=== PATIENT | female | born 1945 | race Caucasian/White ===

== ENCOUNTER 2018-09-14 11:51 | Inpatient (IN) ==
--- NOTE | 2018-09-14 12:01 | Emergency Department Note ---
Disposition Clinical Impression: Laceration Disposition: Admitted As Inpatient Condition: Fair Time of Disposition: 14:47 General Adult HPI - General Stated complaint: Wound on left leg Time Seen by Provider: 09/14/18 11:57 - Related Data Home Medications Medication Instructions Recorded Confirmed Avalide 300-12.5 mg Tablet 1 tab PO DAILY 09/14/18 09/14/18 CloNIDine 0.1 mg PO BID 09/14/18 09/14/18 Crestor 10 mg PO DAILY 09/14/18 09/14/18 Glimepiride 4 mg PO DAILY 09/14/18 09/14/18 Insulin Glargine [Lantus] 40 units SQ HS 09/14/18 09/14/18 Novolog 5 unit SQ TIDAC 09/14/18 09/14/18 Allergies Allergy/AdvReac Type Severity Reaction Status Date / Time morphine Allergy Hives Verified 09/14/18 09:48 propoxyphene [From Darvon] Allergy Hives Verified 09/14/18 09:48 Sulfa (Sulfonamide Allergy Hives Verified 09/14/18 09:48 Antibiotics) Past Medical History - Past Medical History Medical history: Reports: diabetes, hypertension Psychiatric history: Reports: no psych history - Social History Smoking Status: Never smoker Smokeless Tobacco Status: No Alcohol use: Reports: none Drug use: Reports: none Course Vital Signs Temperature 98.2 F 09/14/18 11:56 Pulse Rate 116 09/14/18 11:56 Respiratory Rate 22 09/14/18 11:56 Blood Pressure 181/91 09/14/18 11:56 O2 Sat by Pulse Oximetry 100 09/14/18 11:56 Temperature 98.3 F 09/15/18 11:47 Pulse Rate 111 09/15/18 11:47 Respiratory Rate 16 09/15/18 11:47 Blood Pressure 123/73 09/15/18 11:47 O2 Sat by Pulse Oximetry 92 09/15/18 11:47 Oxygen Delivery Oxygen Delivery Room Air Medical Decision Making - Lab Data Result diagrams: 09/15/18 04:37 09/15/18 04:37 Lab Results 09/14/18 09/14/18 09/14/18 Range/Units 12:22 12:38 12:38 WBC 16.4 H (4.3-11.1) K/mcL RBC 4.69 (3.82-4.97) M/mcL Hgb 13.6 (11.5-15.4) g/dL Hct 41.7 (35.3-44.9) % MCV 88.9 (83.0-100.0) fL MCH 29.0 (28.0-33.3) pg MCHC 32.6 (31.6-35.5) g/dL RDW 13.8 (11.5-14.5) % Plt Count 373 (140-400) K/mcL MPV 9.1 L (9.4-12.4) fL Immature Gran % 1.8 (0-4) % Seg Neutrophils % 65.5 % Lymphocytes % 22.6 % Monocytes % 8.0 % Eosinophils % 1.2 % Basophils % 0.9 % Neutrophils # 10.8 H (1.6-8.9) K/mcL Lymphocytes # 3.7 (0.6-4.6) K/mcL Monocytes # 1.3 (0.0-1.3) K/mcL Eosinophils # 0.2 (0.0-0.6) K/mcL Basophils # 0.1 (0.0-0.2) K/mcL PT 11.6 (9.4-12.1) Seconds INR 1.0 Sodium (136-145) mEq/L Potassium (3.5-5.1) mEq/L Chloride (98-107) mEq/L Carbon Dioxide (23-29) mEq/L BUN (8-23) mg/dL Creatinine (0.60-1.20) mg/dL Est GFR ( Amer) (> 60) Est GFR (Non-Af Amer) (> 60) BUN/Creatinine Ratio (6-26) Glucose (70-105) mg/dL POC Glucose 257 H (70-99) mg/dL Calculated Osmolality (280-300) Calcium (8.6-10.3) mg/dL Blood Type Antibody Screen 09/14/18 09/14/18 Range/Units 12:38 12:38 WBC (4.3-11.1) K/mcL RBC (3.82-4.97) M/mcL Hgb (11.5-15.4) g/dL Hct (35.3-44.9) % MCV (83.0-100.0) fL MCH (28.0-33.3) pg MCHC (31.6-35.5) g/dL RDW (11.5-14.5) % Plt Count (140-400) K/mcL MPV (9.4-12.4) fL Immature Gran % (0-4) % Seg Neutrophils % % Lymphocytes % % Monocytes % % Eosinophils % % Basophils % % Neutrophils # (1.6-8.9) K/mcL Lymphocytes # (0.6-4.6) K/mcL Monocytes # (0.0-1.3) K/mcL Eosinophils # (0.0-0.6) K/mcL Basophils # (0.0-0.2) K/mcL PT (9.4-12.1) Seconds INR Sodium 138 (136-145) mEq/L Potassium 3.7 (3.5-5.1) mEq/L Chloride 99 (98-107) mEq/L Carbon Dioxide 26 (23-29) mEq/L BUN 23 (8-23) mg/dL Creatinine 1.20 (0.60-1.20) mg/dL Est GFR ( Amer) 54 L (> 60) Est GFR (Non-Af Amer) 44 L (> 60) BUN/Creatinine Ratio 19 (6-26) Glucose 275 H (70-105) mg/dL POC Glucose (70-99) mg/dL Calculated Osmolality 299 (280-300) Calcium 10.0 (8.6-10.3) mg/dL Blood Type O POSITIVE Antibody Screen NEGATIVE Attestation Statement - Attestation Attestation: I reviewed the residents documentation and agree with the residents assessment and plan of care. I have personally had face to face time with the patient. (Brief History, Brief Exam, and MDM) I personally supervised and was present for the tatum/critical portions of the following procedures completed by the resident: (add procedures performed here). [id number] time provided Patient sent from outside facilities due to traumatic laceration/skin tear to her left lower extremity. Patient does have laceration to her distal left leg without active bleeding. Given the size I feel it is most appropriate to have the acute care surgeon hydro station operator evaluate the patient for possible operative washout and primary approximation I attest to supervising the resident physician's interpretation of the ECG
--- NOTE | 2018-09-14 12:06 | Emergency Department Note ---
Disposition Clinical Impression: Laceration Disposition: Admitted As Inpatient Condition: Fair Time of Disposition: 12:38 Extremity Problem HPI - General Stated complaint: Wound on left leg Time Seen by Provider: 09/14/18 11:57 Source: EMS Mode of arrival: EMS Limitations: no limitations Nursing Notes Reviewed: Yes Vital Signs Reviewed: Yes - History of Present Illness HPI Narrative: 72-year-old female with significant past medical history that reports falling this morning at 9:00 while she bent down and struck her leg on the floor she lost her balance. Patient sustained a greater than 60 cm laceration from her left knee down to her left ankle across the anterior aspect of the leg. Patient was initially evaluated at an outside facility and sent here for definitive management. Patient is currently complaining of left leg pain that she states is pulsating with every heartbeat. She states is approximately a 7 out of 10 in severity. She was given 2 doses of 25 g of fentanyl at the outside facility but they did not last very long and she is in pain again. Pain Scale: 10 - Related Data Home Medications Medication Instructions Recorded Confirmed Avalide 300-12.5 mg Tablet 1 tab PO DAILY 09/14/18 09/14/18 CloNIDine 0.1 mg PO BID 09/14/18 09/14/18 Crestor 10 mg PO DAILY 09/14/18 09/14/18 Glimepiride 4 mg PO DAILY 09/14/18 09/14/18 Insulin Glargine [Lantus] 40 units SQ HS 09/14/18 09/14/18 Novolog 5 unit SQ TIDAC 09/14/18 09/14/18 Allergies Allergy/AdvReac Type Severity Reaction Status Date / Time morphine Allergy Hives Verified 09/14/18 09:48 propoxyphene [From Darvon] Allergy Hives Verified 09/14/18 09:48 Sulfa (Sulfonamide Allergy Hives Verified 09/14/18 09:48 Antibiotics) Review of Systems: In addition to that documented in the HPI above, the additional ROS was obtained: Constitutional: Denies fevers or chills Eyes: Denies vision changes ENMT: Denies sore throat CV: Denies chest pain Resp: Denies SOB GI: Denies vomiting or diarrhea : Denies painful urination MSK: Reports fall this AM with resultant left leg laceration Skin: Denies new rashes Neuro: Denies new numbness or tingling or weakness Past Medical History - Past Medical History Attestation: Yes The following information was validated with the patient. Medical history: Reports: diabetes, hypertension Psychiatric history: Reports: no psych history - Social History Smoking Status: Never smoker Smokeless Tobacco Status: No Alcohol use: Reports: none Drug use: Reports: none Physical Exam General: A&O x 3. Mildly distressed. Well developed, well nourished. Obese female. Head: atraumatic, normocephalic. ENT: No conjunctival injection, no scleral icterus. PERRLA. EOMI. Oropharynx non- erythematous. mucous membranes moist. Neuro: No focal deficits, no speech deficit, no facial droop, mentating well. BU E/BLE Str 5/5. Pulm: Lungs CTAB A/P. No wheezes, rales, ronchi. Cardio: RRR no m/r/g. Chest not tender to palpation. Abd: Soft, non-distended. Normoactive bowel sounds. Non-tender to palpation. No guarding. Non rigid. Extremities: Radial pulses 2+ freddy, dorsalis pedis/posterior tibialis 2+ freddy. Left lower extremity with >60cm laceration from just distal to knee to just proximal from ankle. Skin: warm, dry, with laceration as noted above. Psych: Appropriate mood and affect. Answers questions appropriately. Cooperative with exam. - General Limitations: no limitations General appearance: alert Course - Consultations Consultation #1: Spoke with Dr Perales, on-call surgeon, who stated that he would come and evaluate the patient at bedside. Time: 12:03 Vital Signs Temperature 98.2 F 09/14/18 11:56 Pulse Rate 116 09/14/18 11:56 Respiratory Rate 22 09/14/18 11:56 Blood Pressure 181/91 09/14/18 11:56 O2 Sat by Pulse Oximetry 100 09/14/18 11:56 Temperature 98.2 F 09/14/18 11:56 Pulse Rate 116 09/14/18 11:56 Respiratory Rate 22 09/14/18 11:56 Blood Pressure 181/91 09/14/18 11:56 O2 Sat by Pulse Oximetry 100 09/14/18 11:56 Oxygen Delivery Oxygen Delivery Room Air Extremity Problem, Nontraumati - MDM Narrative Medical decision making narrative: Patient was evaluated at the bedside by the on-call surgeon Dr. Perales who stated that he would take the patient to the OR for operative repair with washout. Dr. Perales then stated that he would be admitting the patient to his service and would be treating her as a skin graft patient. Patient's pain was treated while in the department with IV fentanyl. Results of the workup including any imaging and/or labwork was shared with the patient at bedside. Patient was given an opportunity to ask questions at bedside and all of their concerns were addressed. Patient verbalized understanding and agreement with plan of care. Pt remained stable while in the department. - Medical Records Medical records reviewed: Yes I reviewed the patient's medical records. - Lab Data Lab Results 09/14/18 Range/Units 12:22 POC Glucose 257 H (70-99) mg/dL - Radiology Data Radiology results reviewed: Yes I reviewed the patient's radiology results. - EKG Data EKG attestation: Yes I reviewed and interpreted this EKG. EKG results narrative: Heart rate 116, rhythm sinus tachycardia, axis normal. Intervals within normal limits. Baseline wandering compromises interpretation of study. No ST segment elevation or depression noted.
[2018-09-14] MEDS ORDERED: *HR* FentaNYL (PF) 100 MCG/2 ML VIAL IVP ONE (12:16)
--- NOTE | 2018-09-14 12:24 | Acute Care Surgery H&P ---
Date of Encounter: 09/14/18 Time of Encounter: 12:15 Assessment and Plan (1) Open wound of lower leg with complication Current Visit: Yes Status: Acute The assessment and plan as outlined above was discussed with the patient and/or family members who expressed understanding and agreement. All questions were answered. The patient has a severe greater than 60 cm laceration to the left lower extremity. This will need to be addressed in the operating room immediately. Qualifiers: Encounter type: initial encounter Laterality: left Qualified Code(s): S81.802A - Unspecified open wound, left lower leg, initial encounter History of Present Illness Chief complaint: Complex laceration left lower extremity HPI: Ms. Marshall is a 72 year old female With profound morbid obesity who fell at a [employer]'s and sustained a greater than 60 cm laceration to her left lower extremity with extensive degloving i njury from just above the ankle to the knee she is actively bleeding in the emergency department and will require immediate surgical irrigation and debridement with closure of complex laceration. Patient understands risks and benefits will go to the operating room immediately Past Med Surg Social Fam HX - Past Medical History Medical history: diabetes, hypertension Psychiatric history: no psych history - Past Surgical History Additional surgical history: thyroid cyst removed - Social History Smoking Status: Never smoker Smokeless Tobacco Status: No Alcohol use: none Drug use: none Medications and Allergies Avalide 300-12.5 mg Tablet 1 tab PO DAILY 09/14/18 [History] CloNIDine 0.1 mg PO BID 09/14/18 [History] Crestor 10 mg PO DAILY 09/14/18 [History] Glimepiride 4 mg PO DAILY 09/14/18 [History] Insulin Glargine [Lantus] 40 units SQ HS 09/14/18 [History] Novolog 5 unit SQ TIDAC 09/14/18 [History] Allergy/AdvReac Type Severity Reaction Status Date / Time morphine Allergy Hives Verified 09/14/18 09:48 propoxyphene [From Darvon] Allergy Hives Verified 09/14/18 09:48 Sulfa (Sulfonamide Allergy Hives Verified 09/14/18 09:48 Antibiotics) Review of Systems All systems PM: The remainder of the systems were reviewed and are negative General Surgery Exam Initial Vital Signs Temp Pulse Resp BP Pulse Ox 98.2 F 116 22 181/91 100 09/14/18 11:56 07/11/19 11:56 09/14/18 11:56 09/14/18 11:56 09/14/18 11:56 - General physical appearance well developed, well nourished, no distress, obese (Profound morbid obesity) - Respiratory normal expansion, normal respiratory effort, clear to percussion, clear to auscultation - Cardiovascular Cardiovascular exam: Present: RRR, no murmurs/rubs/gallops - Abdomen Abdomen general surgery: Present: bowel sounds present, soft, non tender - Integumentary Integumentary general surgery: Present: other (Severe greater than 60 cm laceration and degloving injury to left lower extremity) - Neurologic Present: CN 2-12 grossly intact, normal coordination, normal sensation - Psychiatric Psychiatric general surgery: Present: appropriate, oriented to person, oriented to place, oriented to time, speech is normal, memory intact Results - Labs All other labs normal.
--- NOTE | 2018-09-14 12:42 | Anesthesia Evaluation PreOp ---
Date of Encounter: 09/14/18 Time of Encounter: 12:40 - Past History Planned Operation: Closure of Left Leg Laceration Cardiac History: HTN Pulmonary History: Denies Any Significant HX, BRENT Dx NUCLEAR TEST TECHNICIAN History: Denies Any Significant HX Other Medical History: Diabetes Type II, Other (SMO BMI-55.2) Anesthesia History: No Prior Anesthetic Complications, Past Anesthesia (Thyroid cyst) : No Alcohol Use: none Drug use: none Medications and Allergies Avalide 300-12.5 mg Tablet 1 tab PO DAILY 09/14/18 [History] CloNIDine 0.1 mg PO BID 09/14/18 [History] Crestor 10 mg PO DAILY 09/14/18 [History] Glimepiride 4 mg PO DAILY 09/14/18 [History] Insulin Glargine [Lantus] 40 units SQ HS 09/14/18 [History] Novolog 5 unit SQ TIDAC 09/14/18 [History] Allergy/AdvReac Type Severity Reaction Status Date / Time morphine Allergy Hives Verified 09/14/18 09:48 propoxyphene [From Darvon] Allergy Hives Verified 09/14/18 09:48 Sulfa (Sulfonamide Allergy Hives Verified 09/14/18 09:48 Antibiotics) - Meds/Allergy Pre-op Review Medications Reviewed: Yes Allergies Reviewed: Yes Beta Blockers on Current Med List: No Anesthesia Results - Labs 09/14/18 12:38 Laboratory Tests 05/03/14 05/03/14 08:50 08:50 Sodium 136 Potassium 4.1 Chloride 105 Carbon Dioxide 21 Creatinine 0.97 Hemoglobin A1c 9.8 H Anesthesia Exam Vital Signs/O2 Sat, Most Current Temp Pulse Resp BP Pulse Ox 98.2 F 117 20 176/84 95 09/14/18 11:56 09/14/18 12:58 09/14/18 12:58 09/14/18 12:58 09/14/18 12:58 Blood glucose: 257 NPO (# of Hours): > 8 Hrs Pain Scale: 2 Pain Scale Used: Numeric (1 - 10) - HEENT Pupil (Motor): Pupils equal, EOMI Mallampati: II Teeth: Normal Oral Opening: Greater than 3 - NUCLEAR TEST TECHNICIAN LOC: Oriented NUCLEAR TEST TECHNICIAN Motor: Normal RUE, Normal LUE, Normal RLE, Normal LLE, Normal Face NUCLEAR TEST TECHNICIAN Sensory: Normal: RUE, LUE, RLE, LLE, Face - Cardiac Rhythm: Regular Murmur: None JVD: No Carotid Bruit: No - Pulmonary Breath Sounds: bilateral Clear Respiratory Effort: Symmetrical Anesthesia Assess/Plan ASA Score: 4 Level of consciousness: Cooperative Anesthetic Plan: General Autologous Blood: Yes Monitoring Plan: Standard Monitors Recovery Plan: PACU
[2018-09-14 12:59] LABS: Basophils # 0.1 K/mcL (0.0-0.2); Basophils % 0.9 %; Eosinophils # 0.2 K/mcL (0.0-0.6); Eosinophils % 1.2 %; Hematocrit 41.7 % (35.3-44.9); Hemoglobin 13.6 g/dL (11.5-15.4); Immature Granulocytes % 1.8 % (0-4); Lymphocytes # 3.7 K/mcL (0.6-4.6); Lymphocytes % 22.6 %; Mean Corpuscular HGB Conc 32.6 g/dL (31.6-35.5); Mean Corpuscular Volume 88.9 fL (83.0-100.0); Mean Platelet Volume 9.1 fL (9.4-12.4); Monocytes # 1.3 K/mcL (0.0-1.3); Neutrophils # 10.8 K/mcL (1.6-8.9); Platelet Count 373 K/mcL (140-400); Red Blood Count 4.69 M/mcL (3.82-4.97); Red Cell Distribution Width 13.8 % (11.5-14.5); Segmented Neutrophils % 65.5 %; White Blood Count 16.4 K/mcL (4.3-11.1)
[2018-09-14 13:08] LABS: Prothrombin Time 11.6 Seconds (9.4-12.1)
[2018-09-14 13:15] LABS: Potassium 3.7 mEq/L (3.5-5.1)
[2018-09-14] MEDS ORDERED: *HR* Labetalol 20 MG/4 ML SYRINGE IVP PRN (13:20)
[2018-09-14] MEDS ORDERED: Ondansetron 4 MG/2 ML VIAL IVP ONE ×3 (13:20→16:59)
[2018-09-14] MEDS ORDERED: traMADol 50 MG TABLET PO PRN (13:20)
[2018-09-14] MEDS ORDERED: *HR* Promethazine 25 MG/ML VIAL IVP PRN (13:20)
[2018-09-14] MEDS ORDERED: *HR* FentaNYL (PF) 100 MCG/2 ML VIAL ONE ×2 (13:32→15:08)
[2018-09-14] MEDS ORDERED: Lidocaine -MPF 2% 2 ML VIAL ONE (13:33)
[2018-09-14] MEDS ORDERED: *HR* Propofol 200 MG/20 ML VIAL IVP ONE (13:33)
[2018-09-14] MEDS ORDERED: ceFAZolin 3,000 MG in Water for inj. (sterile) 30 ML IVP ONE (14:27)
[2018-09-14] MEDS ORDERED: *HR* PHENYLEPHRINE 1,000 MCG/10 ML SYRINGE IVP ONE (14:31)
[2018-09-14] MEDS ORDERED: ceFAZolin 3,000 MG in 0.9 % Sodium Chloride 100 ML IVPB ONE (14:33)
[2018-09-14] MEDS ORDERED: Acetaminophen IV 1,000 MG/100 ML INFUS..BTL ONE (14:49)
[2018-09-14 14:59] LABS: VBG Base Excess 0 mEq/L; VBG Chloride 102 mEq/L (98-107); VBG Glucose 274 mg/dl (65-95); VBG HCO3 25 mEq/L (21-27); VBG Ionized Calcium 1.22 mmol/L (1.15-1.35); VBG Oxygen Saturation 79 %; VBG PCO2 40 mmHg (41-51); VBG PO2 43 mmHg (25-50); VBG Total CO2 26 mEq/L
--- NOTE | 2018-09-14 15:15 | Operative Note ---
Date of procedure: 09/14/18 Pre-op diagnosis: Complex laceration and degloving injury left lower extremity Post-op diagnosis: same Procedure: #1 complex laceration closure 30 cm x 15 cm multiple layers #2 debridement of full-thickness skin 30 cm x 15 cm #3 split-thickness skin graft 25 cm x 12 cm Anesthesia: FRANCIE Surgeon: Paulie Perales Was there an assistant men's soccer coach present: Yes Tmr Teacher: Vee Burk Estimated blood loss (cc): 25 Specimen: None Condition: stable Disposition: PACU Procedure in Detail: After informed consent the patient was taken to major operative suite placed in supine position given adequate general endotracheal anesthesia. Timeout was taken and patient was identified. Lateralizing ab is identified stop sinus identified. The patient had a very complex laceration and degloving injury involving almost the entire left lower extremity. The wound measured 30 cm x 15 cm x 3 cm deep. The distal portion wound was mainly degloving injury with nonviable skin. The upper portion of the wound performed a pedicle about 15 cm x 15 cm in size. Irrigated with copious amounts of antibiotic containing solution and removed any foreign material. This was an open contaminated wound. I then used a stapling device to swing the superior pedicle into position and stapled this in place superiorly and posterior inferior. There were no attachments medial and inferiorly. And the pedicle was left free in this area so that I could place white foam on the edge of the pedicle and provide suction drainage with wound VAC. Remaining area was 25 cm x 12 cm. I salvage the skin from the degloving injury and removed all the fat from the skin. I then cut the salvaged skin into 2 pieces and ran it through the 1.5-1 mesh device. The wound was irrigated and cleaned. I then applied the skin as a split-thickness skin graft directly onto the exposed subcutaneous tissue. This gave an excellent result covering 90% on the wound. This was secured with skin clips and laney. A single piece of white foam was used at the bottom of the previously attached thick pedicle. This would provide suction and drainage behind the pedicle and closure of the wound. Black foam was then used on top of Adaptic over the entire split-thickness skin graft. Multiple occlusive plastic dressings were applied. This was placed on suction and there was no evidence of air leak. Patient tolerated procedure well
[2018-09-14] MEDS ORDERED: Ondansetron 4 MG/2 ML VIAL IVP PRN (15:16)
[2018-09-14] MEDS ORDERED: Dextrose Gel 15 GM/37.5 ML TUBE PO PRN ×6 (15:16→16:59)
[2018-09-14] MEDS ORDERED: *HR* Metoprolol 5 MG/5 ML VIAL IVP PRN ×2 (15:16→16:59)
[2018-09-14] MEDS ORDERED: *HR* Dextrose 50 % in Water (Syg) 50 ML SYRINGE IVP PRN ×2 (15:16→16:59)
[2018-09-14] MEDS ORDERED: D5% in Water 1,000 ML IVC PRN ×2 (15:16→16:59)
[2018-09-14] MEDS ORDERED: *HR* OxyCODONE/APAP 5/325 TABLET PO PRN (15:16)
[2018-09-14] MEDS ORDERED: Ondansetron 4 MG/2 ML VIAL ONE (15:18)
[2018-09-14] MEDS ORDERED: 0.9 % Sodium Chloride 1,000 ML IVC SCH (15:30)
[2018-09-14] MEDS: *HR* HYDROmorphone (PF) 1 MG/ML SYRINGE IVP PRN ×2 (15:53→15:58)
--- NOTE | 2018-09-14 16:51 | Anesthesia Evaluation Post Op ---
Date of Encounter: 09/14/18 Time of Encounter: 16:50 - Vital Signs Vital Signs: Vital Signs/O2 Sat, Most Current Temp Pulse Resp BP Pulse Ox 97.3 F L 120 16 150/71 93 09/14/18 16:41 09/14/18 16:41 09/14/18 16:41 09/14/18 16:41 09/14/18 16:41 - Lungs Lungs: Clear Ascult./Percussion - Airway Airway: Non-obstructed - Cardiovascular Regular Rate - Mental Status Mental Status: Alert & Oriented, Answers Appropriately - Pain Pain Scale: 2 Pain Scale used: Numeric (1 - 10) - Nausea Vomiting Nausea Vomiting: Responds to treatment with IV Meds - Hydration Hydration: NPO, Has not voided - Discharge PostOp Status: Transfer Patient to floor
[2018-09-14] MEDS: *HR* Heparin 5,000 UNIT/ML VIAL SQ SCH (18:51)
[2018-09-14] MEDS: *HR* OxyCODONE/APAP 5/325 TABLET PO PRN ×2 (18:51→23:53)
[2018-09-14] MEDS: 0.9 % Sodium Chloride 1,000 ML IVC SCH (18:52)
[2018-09-14] MEDS: Insulin LISPRO 300 UNITS/3 ML VIAL SQ SCH (19:14)
[2018-09-14] MEDS ORDERED: ceFAZolin 3,000 MG in 0.9 % Sodium Chloride 100 ML IVPB SCH (21:00)
[2018-09-14] MEDS: ceFAZolin 3,000 MG in 0.9 % Sodium Chloride 100 ML IVPB SCH (21:15)
[2018-09-14] MEDS: cloNIDine HCl 0.1 MG TABLET PO SCH (21:15)
[2018-09-14] MEDS: Insulin DETEMIR 100 UNIT/ML X5UNITS SQ SCH (21:16)
[2018-09-15] MEDS: ceFAZolin 3,000 MG in 0.9 % Sodium Chloride 100 ML IVPB SCH (04:08)
[2018-09-15] MEDS: *HR* OxyCODONE/APAP 5/325 TABLET PO PRN ×4 (04:15→21:10)
[2018-09-15] MEDS: *HR* Heparin 5,000 UNIT/ML VIAL SQ SCH ×2 (05:12→17:34)
[2018-09-15 05:53] LABS: Basophils # 0.1 K/mcL (0.0-0.2); Basophils % 0.8 %; Eosinophils # 0.1 K/mcL (0.0-0.6); Eosinophils % 0.8 %; Hematocrit 36.8 % (35.3-44.9); Immature Granulocytes % 1.8 % (0-4); Lymphocytes # 3.8 K/mcL (0.6-4.6); Mean Corpuscular HGB Conc 31.8 g/dL (31.6-35.5); Mean Corpuscular Hemoglobin 28.9 pg (28.0-33.3); Mean Corpuscular Volume 90.9 fL (83.0-100.0); Monocytes # 1.4 K/mcL (0.0-1.3); Monocytes % 9.6 %; Neutrophils # 8.8 K/mcL (1.6-8.9); Platelet Count 329 K/mcL (140-400); Red Blood Count 4.05 M/mcL (3.82-4.97); White Blood Count 14.4 K/mcL (4.3-11.1)
[2018-09-15 05:55] LABS: Hemoglobin 11.7 g/dL (11.5-15.4)
[2018-09-15 06:10] LABS: Potassium 4.2 mEq/L (3.5-5.1)
[2018-09-15] MEDS: Insulin LISPRO 300 UNITS/3 ML VIAL SQ SCH ×3 (08:48→16:41)
[2018-09-15] MEDS: Ondansetron 4 MG/2 ML VIAL IVP PRN ×2 (08:52→16:41)
[2018-09-15] MEDS: Pantoprazole 40 MG VIAL IVP SCH (08:55)
[2018-09-15] MEDS: hydroCHLOROthiazide 25 MG TABLET PO SCH (08:55)
[2018-09-15] MEDS: *HR* Glimepiride 4 MG TABLET PO SCH (08:55)
[2018-09-15] MEDS: cloNIDine HCl 0.1 MG TABLET PO SCH ×2 (08:55→21:10)
[2018-09-15] MEDS ORDERED: Pantoprazole 40 MG VIAL IVP SCH (09:00)
--- NOTE | 2018-09-15 11:16 | AcuteCareSurgery Progress Note ---
Date of Encounter: 09/15/18 Time of Encounter: 07:00 - Assessment and Plan (1) Laceration Current Visit: Yes Status: Acute LLE complex laceration S/P repair in OR and with skin graft. Keep wound vac in place as is until 09/19. Regular diet. Maintain IV abx. (2) Diabetes Current Visit: Yes Status: Acute Maintain home meds Qualifiers: Diabetes mellitus type: type 2 Qualified Code(s): E11.9 - Type 2 diabetes mellitus without complications; Z79.4 - residential (current) use of insulin (3) HTN (hypertension) Current Visit: Yes Status: Acute maintain home meds Qualifiers: Hypertension type: essential hypertension Qualified Code(s): I10 - Essential (primary) hypertension Subjective Patient reports: no new complaints, feels better, still having pain, pain is less, tolerating a regular diet, flatus Objective Vital Signs - Last 8 Hours Temp Pulse Resp BP Pulse Ox 09/15/18 07:35 98.7 F 111 16 115/72 98 09/15/18 04:53 97.8 F 106 15 137/62 93 Intake and Output 09/14/18 09/15/18 09/15/18 23:59 07:59 15:59 Intake Total 100 / 100 100 / 100 Output Total 0 / 25 Balance 100 / 75 100 / 100 Intake: IV Fluids 100 / 100 100 / 100 Ancef 3,000 MG In 0.9 % Sodium 100 / 100 100 / 100 Chloride 100 ML @ 200 mls/hr IVPB Q8H ON LICENSE OF [facility] Rx#:[id number] Output: Wound Drainage 0 / 0 Left Chat[place] 0 / 0 Other: # Voids 1 Blood Glucose* [phone] - General physical appearance well developed, well nourished, no distress, moderate pain (Controlled with meds) - ENT normal mucosa, no congestion - Neck Neck exam: trachea midline, no venous distension - Respiratory normal respiratory effort, clear to auscultation - Cardiovascular Cardiovascular exam: Present: RRR - Abdomen Abdomen: Present: bowel sounds present, soft, non tender - Integumentary other (Wound vac in place over LLE. S/P Repair of complex laceration s/p fall with skin graft. ) - Neurologic CN 2-12 grossly intact, normal coordination - Musculoskeletal normal posture - Psychiatric oriented to time, oriented to person, oriented to place - Labs 09/15/18 04:37 09/15/18 04:37 Diabetes panel 09/14/18 09/15/18 Range/Units 12:38 04:37 Sodium 138 134 L (136-145) mEq/L Potassium 3.7 4.2 (3.5-5.1) mEq/L Chloride 99 99 (98-107) mEq/L Carbon Dioxide 26 25 (23-29) mEq/L BUN 23 25 H (8-23) mg/dL Creatinine 1.20 1.47 H (0.60-1.20) mg/dL Glucose 275 H 338 H (70-105) mg/dL Calcium 10.0 9.0 (8.6-10.3) mg/dL Calcium panel 09/14/18 09/15/18 Range/Units 12:38 04:37 Calcium 10.0 9.0 (8.6-10.3) mg/dL Pituitary panel 09/14/18 09/15/18 Range/Units 12:38 04:37 Sodium 138 134 L (136-145) mEq/L Potassium 3.7 4.2 (3.5-5.1) mEq/L Chloride 99 99 (98-107) mEq/L Carbon Dioxide 26 25 (23-29) mEq/L BUN 23 25 H (8-23) mg/dL Creatinine 1.20 1.47 H (0.60-1.20) mg/dL Glucose 275 H 338 H (70-105) mg/dL Calcium 10.0 9.0 (8.6-10.3) mg/dL Adrenal panel 09/14/18 09/15/18 Range/Units 12:38 04:37 Sodium 138 134 L (136-145) mEq/L Potassium 3.7 4.2 (3.5-5.1) mEq/L Chloride 99 99 (98-107) mEq/L Carbon Dioxide 26 25 (23-29) mEq/L BUN 23 25 H (8-23) mg/dL Creatinine 1.20 1.47 H (0.60-1.20) mg/dL Glucose 275 H 338 H (70-105) mg/dL Calcium 10.0 9.0 (8.6-10.3) mg/dL Consult Discharge Plan - Plan Referrals: Patric Verde DO [Primary Care Provider] -
[2018-09-15] MEDS ORDERED: ceFAZolin 3,000 MG in 0.9 % Sodium Chloride 100 ML IVPB ONE (14:33)
[2018-09-15] MEDS: 0.9 % Sodium Chloride 1,000 ML IVC SCH (17:35)
[2018-09-15] MEDS: Insulin DETEMIR 100 UNIT/ML X5UNITS SQ SCH (21:11)
[2018-09-16] MEDS: *HR* Heparin 5,000 UNIT/ML VIAL SQ SCH ×2 (05:58→18:17)
[2018-09-16] MEDS: hydroCHLOROthiazide 25 MG TABLET PO SCH (10:36)
[2018-09-16] MEDS: cloNIDine HCl 0.1 MG TABLET PO SCH ×2 (10:37→21:17)
[2018-09-16] MEDS: *HR* Glimepiride 4 MG TABLET PO SCH (10:37)
[2018-09-16] MEDS: Insulin LISPRO 300 UNITS/3 ML VIAL SQ SCH ×3 (10:38→18:18)
[2018-09-16] MEDS: Pantoprazole 40 MG VIAL IVP SCH (10:38)
[2018-09-16] MEDS: *HR* OxyCODONE/APAP 5/325 TABLET PO PRN ×2 (11:42→21:15)
[2018-09-16] MEDS: 0.9 % Sodium Chloride 1,000 ML IVC SCH (15:07)
--- NOTE | 2018-09-16 20:35 | AcuteCareSurgery Progress Note ---
Date of Encounter: 09/16/18 Time of Encounter: 15:00 - Assessment and Plan (1) Laceration Current Visit: Yes Status: Acute LLE complex laceration S/P repair in OR and with skin graft. Keep wound vac in place as is until 09/19. Regular diet. Maintain IV abx. (2) Diabetes Current Visit: Yes Status: Acute Maintain home meds Qualifiers: Diabetes mellitus type: type 2 Qualified Code(s): E11.9 - Type 2 diabetes mellitus without complications; Z79.4 - alf (current) use of insulin (3) HTN (hypertension) Current Visit: Yes Status: Acute maintain home meds Qualifiers: Hypertension type: essential hypertension Qualified Code(s): I10 - Essential (primary) hypertension Subjective Patient reports: no new complaints, feels better, still having pain, pain is less, flatus, no bowel movement Objective Vital Signs - Last 8 Hours Temp Pulse Resp BP Pulse Ox 09/16/18 19:48 98.3 F 118 16 122/71 94 09/16/18 17:14 98.2 F 121 15 121/71 90 Intake and Output 09/16/18 09/16/18 09/16/18 07:59 15:59 23:59 Intake Total 1240 / 1240 Output Total 30 / 30 Balance -30 / 1210 1240 / 1210 Intake: IV Fluids 1000 / 1000 0.9 % Sodium Chloride 1,000 ML 1000 / 1000 @ 50 mls/hr IVC .Q20H [facility] Rx#: [id number] Oral 240 / 240 Output: Wound Drainage 30 / 30 Left Lower [place] 30 / 30 Other: Meal Lunch Percent of Meal Consumed 80% Blood Glucose* [phone] - General physical appearance well developed, well nourished, no distress, moderate pain (as expected) - Eyes PERRL, normal ocular movement - ENT normal mucosa, no congestion - Neck Neck exam: trachea midline, no venous distension - Respiratory normal respiratory effort, clear to auscultation - Cardiovascular Cardiovascular exam: Present: RRR - Abdomen Abdomen: Present: bowel sounds present, soft, non tender - Integumentary other (LLE lac repair with skin graft wound vac in place) - Neurologic CN 2-12 grossly intact, normal coordination - Musculoskeletal normal posture - Psychiatric oriented to time, oriented to person, oriented to place - Labs 09/15/18 04:37 09/15/18 04:37 Consult Discharge Plan - Plan Referrals: Patric Verde DO [Primary Care Provider] -
[2018-09-16] MEDS: Insulin DETEMIR 100 UNIT/ML X5UNITS SQ SCH (21:18)
[2018-09-17] MEDS: *HR* OxyCODONE/APAP 5/325 TABLET PO PRN ×2 (02:15→21:17)
[2018-09-17] MEDS: *HR* Heparin 5,000 UNIT/ML VIAL SQ SCH ×2 (05:25→17:14)
--- NOTE | 2018-09-17 09:54 | AcuteCareSurgery Progress Note ---
Date of Encounter: 09/17/18 Time of Encounter: 07:00 - Assessment and Plan (1) Laceration Current Visit: Yes Status: Acute LLE complex laceration S/P repair in OR and with skin graft. Keep wound vac in place as is until 09/19. Regular diet. Maintain IV abx. (2) Diabetes Current Visit: Yes Status: Acute Maintain home meds Qualifiers: Diabetes mellitus type: type 2 Qualified Code(s): E11.9 - Type 2 diabetes mellitus without complications; Z79.4 - retirement (current) use of insulin (3) HTN (hypertension) Current Visit: Yes Status: Acute maintain home meds Qualifiers: Hypertension type: essential hypertension Qualified Code(s): I10 - Essential (primary) hypertension Subjective Patient reports: no new complaints, feels better, still having pain, pain is less, tolerating a regular diet, afebrile Objective Vital Signs - Last 8 Hours Temp Pulse Resp BP Pulse Ox 09/17/18 07:31 98.1 F 102 16 105/48 97 09/17/18 03:53 98.4 F 110 16 130/70 96 Intake and Output 09/16/18 09/17/18 09/17/18 23:59 07:59 15:59 Intake Total 120 / 120 Output Total 60 / 60 Balance -60 / 60 120 / 60 Intake: Oral 120 / 120 Output: Wound Drainage 60 / 60 Left [place] 60 / 60 Other: Meal Breakfast Percent of Meal Consumed 100% # Voids 1 Weight 151.5 kg Blood Glucose* 363 342 Patient Weight 09/17/18 23:59 Weight 151.5 kg - General physical appearance well nourished, no distress, moderate pain - Eyes PERRL, normal ocular movement - ENT normal mucosa, no congestion - Neck Neck exam: trachea midline, no venous distension - Respiratory normal respiratory effort, clear to auscultation - Cardiovascular Cardiovascular exam: Present: RRR. Absent: JVD - Abdomen Abdomen: Present: bowel sounds present, soft, non tender - Incision Incision: Present: intact (Wound vac in place on RLE. +skin graft. ) - Neurologic CN 2-12 grossly intact, normal coordination - Musculoskeletal normal posture - Psychiatric oriented to time, oriented to person, oriented to place - Labs 09/15/18 04:37 09/15/18 04:37 Consult Discharge Plan - Plan Referrals: Patric Verde DO [Primary Care Provider] -
[2018-09-17] MEDS: Insulin LISPRO 300 UNITS/3 ML VIAL SQ SCH ×3 (11:22→17:13)
[2018-09-17] MEDS: *HR* Glimepiride 4 MG TABLET PO SCH (11:24)
[2018-09-17] MEDS: cloNIDine HCl 0.1 MG TABLET PO SCH ×2 (11:24→21:17)
[2018-09-17] MEDS: Pantoprazole 40 MG VIAL IVP SCH (11:25)
[2018-09-17] MEDS: hydroCHLOROthiazide 25 MG TABLET PO SCH (11:25)
[2018-09-17] MEDS: 0.9 % Sodium Chloride 1,000 ML IVC SCH (11:37)
--- NOTE | 2018-09-17 18:12 | Electrocardiograph Report ---
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
[2018-09-17] MEDS: Insulin DETEMIR 100 UNIT/ML X5UNITS SQ SCH (21:19)
[2018-09-18] MEDS: *HR* Heparin 5,000 UNIT/ML VIAL SQ SCH ×2 (06:04→16:29)
[2018-09-18] MEDS: 0.9 % Sodium Chloride 1,000 ML IVC SCH ×2 (07:48→13:39)
[2018-09-18] MEDS: cloNIDine HCl 0.1 MG TABLET PO SCH ×2 (07:49→20:18)
[2018-09-18] MEDS: *HR* Glimepiride 4 MG TABLET PO SCH (07:49)
[2018-09-18] MEDS: Pantoprazole 40 MG VIAL IVP SCH (07:49)
[2018-09-18] MEDS: hydroCHLOROthiazide 25 MG TABLET PO SCH (07:49)
[2018-09-18] MEDS: Insulin LISPRO 300 UNITS/3 ML VIAL SQ SCH ×3 (07:57→15:18)
[2018-09-18] MEDS ORDERED: *HR* FentaNYL (PF) 100 MCG/2 ML VIAL IVP ONE ×2 (09:43→11:35)
[2018-09-18] MEDS ORDERED: Ondansetron 4 MG/2 ML VIAL IVP ONE (09:43)
[2018-09-18 09:48] LABS: Basophils # 0.1 K/mcL (0.0-0.2); Basophils % 0.6 %; Eosinophils # 0.3 K/mcL (0.0-0.6); Eosinophils % 2.5 %; Hematocrit 32.4 % (35.3-44.9); Immature Granulocytes % 4.4 % (0-4); Lymphocytes # 3.1 K/mcL (0.6-4.6); Lymphocytes % 24.5 %; Mean Corpuscular HGB Conc 30.9 g/dL (31.6-35.5); Mean Corpuscular Hemoglobin 29.2 pg (28.0-33.3); Mean Corpuscular Volume 94.5 fL (83.0-100.0); Mean Platelet Volume 9.8 fL (9.4-12.4); Monocytes # 0.9 K/mcL (0.0-1.3); Monocytes % 6.8 %; Neutrophils # 7.7 K/mcL (1.6-8.9); Nucleated Red Blood Cells 0.2 /100 WBC (0); Platelet Count 336 K/mcL (140-400); Red Blood Count 3.43 M/mcL (3.82-4.97); Red Cell Distribution Width 14.5 % (11.5-14.5); Segmented Neutrophils % 61.2 %; White Blood Count 12.6 K/mcL (4.3-11.1)
[2018-09-18 10:08] LABS: Potassium 4.3 mEq/L (3.5-5.1)
--- NOTE | 2018-09-18 12:27 | AcuteCareSurgery Progress Note ---
Date of Encounter: 09/18/18 Time of Encounter: 12:27 - Assessment and Plan (1) Laceration Current Visit: Yes Status: Acute Date of procedure: 09/14/18 Pre-op diagnosis: Complex laceration and degloving injury left lower extremity Post-op diagnosis: same Procedure: #1 complex laceration closure 30 cm x 15 cm multiple layers #2 debridement of full-thickness skin 30 cm x 15 cm #3 split-thickness skin graft 25 cm x 12 cm Anesthesia: ZENONA Surgeon: Paulie Perales POD #4 as above. WV changed today. Skin graft appears viable at this time. No s/s of infection noted. Adaptic is laid over the entire wound area. White foam is placed in the previously attached pedicle and black foam overlays the graft. There is a 10% leak noted and I was unable to ascertain the source. Will closely monitor. Next WV change is Tuesday (per surgery only). D/C panning to SNF per rehab recommendations. Pt prefers home healthcare however she has not been out of bed, cannot ambulate, and now has a wound VAC. I did review with her that surgery does not recommend home health but rather recommend fpc per therapy recommendations in that if she chooses to go home with home health, this would be against medical advice as we're concerned for her safety. After further review with the patient she is agreeable to rehab and would prefer something in [facility] if possible. Continue current hospital care repeat a.m. labs (2) CALLY (acute kidney injury) Current Visit: Yes Status: Acute Pt has been incontinent and has used bedpan. Bedpan urine has not been measured. Unclear actual output. Insert salmon, continue IVF, hold HCTZ, will obtain renal US in am if not improved. 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 (4) HTN (hypertension) Current Visit: Yes Status: Acute Continue home medications hold nephrotoxins Qualifiers: Hypertension type: essential hypertension Qualified Code(s): I10 - Essential (primary) hypertension Subjective Patient reports: still having pain, tolerating a regular diet, afebrile Objective Vital Signs - Last 8 Hours Temp Pulse Resp BP Pulse Ox 09/18/18 08:40 97.7 F 93 16 163/70 95 Intake and Output 09/17/18 09/18/18 09/18/18 23:59 07:59 15:59 Intake Total 1000 / 1240 240 / 1240 Output Total 210 / 560 350 / 560 Balance 790 / 680 -110 / 680 Intake: IV Fluids 1000 / 1000 0.9 % Sodium Chloride 1,000 ML 1000 / 1000 @ 50 mls/hr IVC .Q20H [facility] Rx#: [id number] Oral 240 / 240 Output: Wound Drainage 210 / 560 350 / 560 Left Lower [place] 210 / 210 Left [place] 350 / 350 Other: Meal Breakfast Percent of Meal Consumed 100% # Urine Diapers 1 Weight 151.7 kg Blood Glucose* 350 317 Patient Weight 09/18/18 23:59 Weight 151.7 kg - General physical appearance moderate pain, obese - ENT atraumatic, normocephalic - Neck Neck exam: trachea midline - Respiratory other (decreased breat sounds and resp effort) - Cardiovascular Cardiovascular exam: Present: distant heart sounds - Abdomen Abdomen: Present: bowel sounds present, soft, non tender - Integumentary other (ecchymosis on BL arms and legs. Wound Vac inplace. Changed today) - Neurologic normal sensation - Musculoskeletal normal posture - Psychiatric oriented to time, oriented to person, oriented to place - Labs 09/18/18 08:48 09/18/18 08:48 Diabetes panel 09/18/18 Range/Units 08:48 Sodium 134 L (136-145) mEq/L Potassium 4.3 (3.5-5.1) mEq/L Chloride 100 (98-107) mEq/L Carbon Dioxide 24 (23-29) mEq/L BUN 49 H (8-23) mg/dL Creatinine 1.80 H (0.60-1.20) mg/dL Glucose 293 H (70-105) mg/dL Calcium 9.0 (8.6-10.3) mg/dL Calcium panel 09/18/18 Range/Units 08:48 Calcium 9.0 (8.6-10.3) mg/dL Pituitary panel 09/18/18 Range/Units 08:48 Sodium 134 L (136-145) mEq/L Potassium 4.3 (3.5-5.1) mEq/L Chloride 100 (98-107) mEq/L Carbon Dioxide 24 (23-29) mEq/L BUN 49 H (8-23) mg/dL Creatinine 1.80 H (0.60-1.20) mg/dL Glucose 293 H (70-105) mg/dL Calcium 9.0 (8.6-10.3) mg/dL Adrenal panel 09/18/18 Range/Units 08:48 Sodium 134 L (136-145) mEq/L Potassium 4.3 (3.5-5.1) mEq/L Chloride 100 (98-107) mEq/L Carbon Dioxide 24 (23-29) mEq/L BUN 49 H (8-23) mg/dL Creatinine 1.80 H (0.60-1.20) mg/dL Glucose 293 H (70-105) mg/dL Calcium 9.0 (8.6-10.3) mg/dL - VTE Reasons for not Prescribing Prophylaxis: Treatment not Indicated - Low risk for VTE Consult Discharge Plan - Plan Referrals: Patric Verde DO [Primary Care Provider] -
[2018-09-18 13:48] LABS: Bilirubin,Urine Negative (Negative); Blood,Urine Negative (Negative); Color,Urine Yellow (Yellow); Glucose,Urine (UA) 250 mg/dL (Normal); Ketones,Urine Negative (Negative); Leukocyte Esterase,Urine Large (Negative); Nitrite,Urine Negative (Negative); PH,Urine 5.5 pH Units (5.0-8.0); Protein,Urine Negative (Neg-Trace); Specific Gravity,Urine 1.013 (1.010-1.025); Urobilinogen,Urine Normal (Normal)
[2018-09-18 13:50] LABS: Hyaline Casts,Urine None Seen per lpf (None-Few); RBC,Urine 0-3 per hpf (0-3); Squamous Epithelial Cell,Urine Many per lpf (None-Few); WBC,Urine 50-100 per hpf (0-3)
[2018-09-18 13:51] LABS: Clarity,Urine Slightly Hazy (Clear)
[2018-09-18 13:59] LABS: Bacteria,Urine Few per hpf (None-Few)
[2018-09-18] MEDS: *HR* OxyCODONE/APAP 5/325 TABLET PO PRN (15:18)
[2018-09-18] MEDS: Ondansetron 4 MG/2 ML VIAL IVP PRN (15:21)
[2018-09-18] MEDS: Insulin DETEMIR 100 UNIT/ML X5UNITS SQ SCH (20:17)
[2018-09-19] MEDS: 0.9 % Sodium Chloride 1,000 ML IVC SCH ×4 (03:33→20:47)
[2018-09-19] MEDS: *HR* Heparin 5,000 UNIT/ML VIAL SQ SCH ×2 (05:12→18:55)
[2018-09-19 06:42] LABS: Basophils # 0.1 K/mcL (0.0-0.2); Basophils % 0.7 %; Eosinophils # 0.3 K/mcL (0.0-0.6); Eosinophils % 1.7 %; Hematocrit 31.8 % (35.3-44.9); Hemoglobin 10.2 g/dL (11.5-15.4); Immature Granulocytes % 4.3 % (0-4); Lymphocytes # 3.4 K/mcL (0.6-4.6); Lymphocytes % 20.7 %; Mean Corpuscular HGB Conc 32.1 g/dL (31.6-35.5); Mean Corpuscular Hemoglobin 29.8 pg (28.0-33.3); Mean Platelet Volume 9.4 fL (9.4-12.4); Monocytes # 1.3 K/mcL (0.0-1.3); Monocytes % 8.3 %; Neutrophils # 10.4 K/mcL (1.6-8.9); Nucleated Red Blood Cells 0.1 /100 WBC (0); Platelet Count 351 K/mcL (140-400); Red Blood Count 3.42 M/mcL (3.82-4.97); Red Cell Distribution Width 14.7 % (11.5-14.5); Segmented Neutrophils % 64.3 %; White Blood Count 16.2 K/mcL (4.3-11.1)
[2018-09-19 07:05] LABS: Calcium 8.9 mg/dL (8.6-10.3); Potassium 4.8 mEq/L (3.5-5.1)
[2018-09-19] MEDS: Insulin LISPRO 300 UNITS/3 ML VIAL SQ SCH ×3 (07:58→17:55)
[2018-09-19] MEDS: cloNIDine HCl 0.1 MG TABLET PO SCH (07:59)
[2018-09-19] MEDS: Pantoprazole 40 MG VIAL IVP SCH (07:59)
[2018-09-19] MEDS: *HR* Glimepiride 4 MG TABLET PO SCH (07:59)
[2018-09-19] MEDS: Clindamycin 600 MG/50 ML 600 MG/50 ML IV.SOLN IVPB SCH (13:37)
[2018-09-19] MEDS ORDERED: Fluconazole 400 MG/200 ML 400 MG/200 ML BAG IVPB ONE (13:45)
[2018-09-19] MEDS: Nystatin POWDER 30 GM BOTTLE TP SCH ×2 (14:48→20:41)
[2018-09-19] MEDS: Miconazole 2% ointment 141 APPL/141 GM TUBE TP SCH ×2 (14:48→20:41)
--- NOTE | 2018-09-19 18:04 | AcuteCareSurgery Progress Note ---
<Mehnaz Saucedo - Last Filed: 09/19/18 18:01> Date of Encounter: 09/19/18 Time of Encounter: 11:00 - Assessment and Plan (1) Laceration Current Visit: Yes Status: Acute Date of procedure: 09/14/18 Pre-op diagnosis: Complex laceration and degloving injury left lower extremity Post-op diagnosis: same Procedure: #1 complex laceration closure 30 cm x 15 cm multiple layers #2 debridement of full-thickness skin 30 cm x 15 cm #3 split-thickness skin graft 25 cm x 12 cm Anesthesia: FRANCIE Surgeon: Paulie Perales POD #5 as above. WV changed Tuesday09/18/2018. Skin graft appeared viable at this time. No s/s of infection noted. Adaptic is laid over the entire wound area. White foam is placed in the previously attached pedicle and black foam overlays the graft. There is a 10% leak noted and I was unable to ascertain the source. Will closely monitor. Next WV change is Tuesday (per surgery only). Tuesday09/19/2018: lower extremity is warm, erythematous circumferentially from the knee to the ankle and there is no leak noted. The drainage remains dark maroon. There is no pus and the small area of the graft that is visible appears unremarkable. Clindamycin IV is added. Blood sugars remain elevated. Increased her sliding scale to high-dose. If this is not effective she may need and insulin drip as her antibiotics and current infections are likely affecting. Consult hospitalist in the a.m. for chronic condition management as well as acute kidney injury if unresolved. Plan: Continue IV ATBX (cipro day @ for UTI, Diflucan day 1, and CLindamycin day 1) IVF supportive care and discomfort management Repeat am labs WV to be changed Tuesday per surgery IS Foot pumps Hep SQ Protonix (2) CALLY (acute kidney injury) Current Visit: Yes Status: Acute IVF continued, Salmon cath in place. 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 (4) HTN (hypertension) Current Visit: Yes Status: Acute Continue home medications hold nephrotoxins hold clonidine (BP normal at this time) hold cozaar Qualifiers: Hypertension type: essential hypertension Qualified Code(s): I10 - Essential (primary) hypertension (5) Candidiasis Current Visit: Yes Status: Acute Diflucan IV Nystatin powder miconazole extra thick ([place]) to entire labia (6) Morbid (severe) obesity due to excess calories Current Visit: Yes Status: Acute Bariatric bed; air loss mattress consult to wound care as such; noted per WC note, this may require transfer to a floor that the bed can fit. OK per surgery Subjective Patient reports: still having pain, voiding w/o difficulty (per salmon), flatus, no bowel movement, afebrile Narrative: Reports increased pain in the left leg, vaginal burning and itching. Denies fever Objective Vital Signs - Last 8 Hours Temp Pulse Resp BP Pulse Ox 09/19/18 16:02 98.0 F 105 19 115/54 93 09/19/18 12:09 98.3 F 108 20 131/74 94 Intake and Output 09/19/18 09/19/18 09/19/18 07:59 15:59 23:59 Intake Total 1520 / 3050 1530 / 3050 Output Total 1700 / 2050 350 / 2050 Balance -180 / 1000 1530 / 1000 -350 / 1000 Intake: IV Fluids 1400 / 2450 1050 / 2450 0.9 % Sodium Chloride 1,000 ML 1000 / 2000 1000 / 2000 @ 125 mls/hr IVC .Q8H [facility] Rx#: [id number] Cipro Premix 400 MG/200 ML 400 400 / 400 mg In 200 ml @ 200 mls/hr IVPB Q12HR [facility] Rx#:[id number] Cleocin Premix 600 MG/50 ML 600 50 / 50 mg In 50 ml @ 50 mls/hr IVPB Q8H [facility] Rx#:[id number] Oral 120 / 600 480 / 600 Output: Urine 1400 / 1400 Catheter 250 / 600 350 / 600 Wound Drainage 50 / 50 Left [place] 50 / 50 Other: Meal Lunch Percent of Meal Consumed 100% Weight 154.8 kg Blood Glucose* 295 304 315 Patient Weight 09/19/18 23:59 Weight 154.8 kg - General physical appearance no distress, obese - Neck Neck exam: trachea midline - Respiratory other (decreased resp effort ) - Cardiovascular Cardiovascular exam: Present: RRR, distant heart sounds - Abdomen Abdomen: Present: bowel sounds present, soft, non tender - Genitourinary other (salmon cath is in place. The entire BL labia is edematous, errythematic, odors of yeast, and thick white discharge.) - Integumentary other (LLE is errythematic, warm, and increased in pain; WV remains in place and there is no leak. ) - Musculoskeletal normal posture - Psychiatric oriented to time, oriented to person, oriented to place - Labs 09/19/18 06:08 09/19/18 06:08 Diabetes panel 09/19/18 Range/Units 06:08 Sodium 134 L (136-145) mEq/L Potassium 4.8 (3.5-5.1) mEq/L Chloride 102 (98-107) mEq/L Carbon Dioxide 23 (23-29) mEq/L BUN 43 H (8-23) mg/dL Creatinine 1.59 H (0.60-1.20) mg/dL Glucose 293 H (70-105) mg/dL Calcium 8.9 (8.6-10.3) mg/dL Calcium panel 09/19/18 Range/Units 06:08 Calcium 8.9 (8.6-10.3) mg/dL Pituitary panel 09/19/18 Range/Units 06:08 Sodium 134 L (136-145) mEq/L Potassium 4.8 (3.5-5.1) mEq/L Chloride 102 (98-107) mEq/L Carbon Dioxide 23 (23-29) mEq/L BUN 43 H (8-23) mg/dL Creatinine 1.59 H (0.60-1.20) mg/dL Glucose 293 H (70-105) mg/dL Calcium 8.9 (8.6-10.3) mg/dL Adrenal panel 09/19/18 Range/Units 06:08 Sodium 134 L (136-145) mEq/L Potassium 4.8 (3.5-5.1) mEq/L Chloride 102 (98-107) mEq/L Carbon Dioxide 23 (23-29) mEq/L BUN 43 H (8-23) mg/dL Creatinine 1.59 H (0.60-1.20) mg/dL Glucose 293 H (70-105) mg/dL Calcium 8.9 (8.6-10.3) mg/dL - VTE Reasons for not Prescribing Prophylaxis: Treatment not Indicated - Low risk for VTE Consult Discharge Plan - Plan Referrals: Patric Verde DO [Primary Care Provider] - <Cassilaw VerdeLázaro Lucy - Last Filed: 09/19/18 20:47> Date of Encounter: 09/19/18 - Assessment and Plan (1) Laceration Current Visit: Yes Status: Acute (2) Diabetes Current Visit: Yes Status: Acute Qualifiers: Diabetes mellitus type: type 2 Diabetes mellitus 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 wall 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: with long wall shear operator use Diabetes mellitus complication status: with other specified complication Qualified Code(s): E11.69 - Type 2 diabetes mellitus with other specified complication; 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 - 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 (3) HTN (hypertension) Current Visit: Yes Status: Acute Qualifiers: Hypertension type: essential hypertension Qualified Code(s): I10 - Essential (primary) hypertension Objective Vital Signs - Last 8 Hours Temp Pulse Resp BP Pulse Ox 09/19/18 20:19 99.4 F 106 15 145/67 94 09/19/18 16:02 98.0 F 105 19 115/54 93 Intake and Output 09/19/18 09/19/18 09/19/18 07:59 15:59 23:59 Intake Total 1520 / 3250 1530 / 3250 200 / 3250 Output Total 1700 / 2050 350 / 2050 Balance -180 / 1200 1530 / 1200 -150 / 1200 Intake: IV Fluids 1400 / 2650 1050 / 2650 200 / 2650 0.9 % Sodium Chloride 1,000 ML 1000 / 2000 1000 / 2000 @ 125 mls/hr IVC .Q8H [facility] Rx#: [id number] Cipro Premix 400 MG/200 ML 400 400 / 600 200 / 600 mg In 200 ml @ 200 mls/hr IVPB Q12HR [facility] Rx#:[id number] Cleocin Premix 600 MG/50 ML 600 50 / 50 mg In 50 ml @ 50 mls/hr IVPB Q8H [facility] Rx#:[id number] Oral 120 / 600 480 / 600 0 / 600 Output: Urine 1400 / 1400 0 / 1400 Catheter 250 / 600 350 / 600 Wound Drainage 50 / 50 Left [place] 50 / 50 Other: Meal Lunch Percent of Meal Consumed 100% Weight 154.8 kg Blood Glucose* 295 304 338 Patient Weight 09/19/18 23:59 Weight 154.8 kg - Labs 09/19/18 06:08 09/19/18 06:08 Diabetes panel 09/19/18 Range/Units 06:08 Sodium 134 L (136-145) mEq/L Potassium 4.8 (3.5-5.1) mEq/L Chloride 102 (98-107) mEq/L Carbon Dioxide 23 (23-29) mEq/L BUN 43 H (8-23) mg/dL Creatinine 1.59 H (0.60-1.20) mg/dL Glucose 293 H (70-105) mg/dL Calcium 8.9 (8.6-10.3) mg/dL Calcium panel 09/19/18 Range/Units 06:08 Calcium 8.9 (8.6-10.3) mg/dL Pituitary panel 09/19/18 Range/Units 06:08 Sodium 134 L (136-145) mEq/L Potassium 4.8 (3.5-5.1) mEq/L Chloride 102 (98-107) mEq/L Carbon Dioxide 23 (23-29) mEq/L BUN 43 H (8-23) mg/dL Creatinine 1.59 H (0.60-1.20) mg/dL Glucose 293 H (70-105) mg/dL Calcium 8.9 (8.6-10.3) mg/dL Adrenal panel 09/19/18 Range/Units 06:08 Sodium 134 L (136-145) mEq/L Potassium 4.8 (3.5-5.1) mEq/L Chloride 102 (98-107) mEq/L Carbon Dioxide 23 (23-29) mEq/L BUN 43 H (8-23) mg/dL Creatinine 1.59 H (0.60-1.20) mg/dL Glucose 293 H (70-105) mg/dL Calcium 8.9 (8.6-10.3) mg/dL - Attending Attestation I examined this patient and my medical decision-making was reviewed with the RN ANTE PARTUM. I agree with the documented findings, disposition and treatment plan as described except to the extent set forth below. Pt doing well. +possible cellulitis in RLE associated with skin graft. start Clindamycin IV. Continue current wound care with vac.
[2018-09-19] MEDS ORDERED: Dextrose Gel 15 GM/37.5 ML TUBE PO PRN ×2 (18:09)
[2018-09-19] MEDS ORDERED: *HR* Dextrose 50 % in Water (Syg) 50 ML SYRINGE IVP PRN (18:09)
[2018-09-19] MEDS ORDERED: D5% in Water 1,000 ML IVC PRN (18:09)
[2018-09-19] MEDS ORDERED: *HR* Metoprolol 5 MG/5 ML VIAL IVP PRN (18:15)
[2018-09-19] MEDS ORDERED: *HR* Metoprolol 5 MG/5 ML VIAL IVP ONE (18:15)
[2018-09-19] MEDS: Insulin DETEMIR 100 UNIT/ML X5UNITS SQ SCH (20:47)
[2018-09-20] MEDS: Clindamycin 600 MG/50 ML 600 MG/50 ML IV.SOLN IVPB SCH ×4 (03:32→20:03)
[2018-09-20] MEDS: *HR* Heparin 5,000 UNIT/ML VIAL SQ SCH ×2 (06:38→17:43)
[2018-09-20] MEDS: *HR* OxyCODONE/APAP 5/325 TABLET PO PRN ×2 (06:38→17:26)
[2018-09-20] MEDS: 0.9 % Sodium Chloride 1,000 ML IVC SCH ×3 (06:51→18:41)
[2018-09-20] MEDS ORDERED: Insulin LISPRO 300 UNITS/3 ML VIAL SQ SCH (07:30)
[2018-09-20 07:43] LABS: Hematocrit 30.3 % (35.3-44.9); Hemoglobin 9.5 g/dL (11.5-15.4); Mean Corpuscular HGB Conc 31.4 g/dL (31.6-35.5); Mean Corpuscular Hemoglobin 29.8 pg (28.0-33.3); Mean Platelet Volume 9.3 fL (9.4-12.4); Nucleated Red Blood Cells 0.2 /100 WBC (0); Platelet Count 337 K/mcL (140-400); Red Blood Count 3.19 M/mcL (3.82-4.97); Red Cell Distribution Width 14.7 % (11.5-14.5); White Blood Count 17.5 K/mcL (4.3-11.1)
[2018-09-20 08:08] LABS: Calcium 8.8 mg/dL (8.6-10.3); Potassium 4.8 mEq/L (3.5-5.1)
[2018-09-20] MEDS: *HR* Glimepiride 4 MG TABLET PO SCH (08:25)
[2018-09-20] MEDS: Pantoprazole 40 MG VIAL IVP SCH (08:26)
[2018-09-20] MEDS: Miconazole 2% ointment 141 APPL/141 GM TUBE TP SCH (08:31)
[2018-09-20] MEDS: Nystatin POWDER 30 GM BOTTLE TP SCH ×3 (08:31→20:03)
[2018-09-20] MEDS: Fluconazole 200 MG/100 ML 200 MG/100 ML BAG IVPB SCH (08:31)
[2018-09-20 08:45] LABS: Lymphocytes # 1.8 K/mcL (0.6-4.6); Monocytes # 1.1 K/mcL (0.0-1.3); Neutrophils # 14.7 K/mcL (1.6-8.9); Platelet Estimate Normal (Normal)
[2018-09-20 08:46] LABS: Anisocytosis 1+ (Not Present)
[2018-09-20] MEDS ORDERED: *HR* HYDROmorphone 2 MG/ML SYRINGE IVP ONE (10:30)
[2018-09-20] MEDS ORDERED: *HR* HYDROmorphone (PF) 1 MG/ML SYRINGE IVP ONE ×2 (10:43→11:25)
--- NOTE | 2018-09-20 11:02 | AcuteCareSurgery Progress Note ---
<Mavis Joshi Ravindra - Last Filed: 09/20/18 12:33> Date of Encounter: 09/20/18 Time of Encounter: 09:30 - Assessment and Plan (1) Laceration Current Visit: Yes Status: Acute POD #6 complex laceration closure 30 cm x 15 cm multiple layers, debridement of full-thickness skin 30 cm x 15 cm, split-thickness skin graft 25 cm x 12 cm Wound vac change today 09/20 Continue IV antibiotics- Clindamycin Supportive care and pain control PT/OT day for mobilization IS every 1 hour while awake GI prophylaxis DVT prophylaxis WBC- 16.2>17.5 Repeat am labs (2) Diabetes Current Visit: Yes Status: Acute Blood sugars continue to be elevated Continue Levemir QHS 40 units Change Lispro SSI to low scale coverage Add Preprandial Insulin 10 units Continue to monitor and adjust as necessary Qualifiers: Diabetes mellitus type: type 2 Diabetes mellitus exterminator helper insulin use: with halfway use Diabetes mellitus complication status: with other specified complication Qualified Code(s): E11.69 - Type 2 diabetes mellitus with other specified complication; Z79.4 - [facility] (current) use of insulin (3) CALLY (acute kidney injury) Current Visit: Yes Status: Acute Cr- 1.8>1.59>1.46 IV fluids Salmon catheter for strict I&Os Repeat am labs (4) Candidiasis Current Visit: Yes Status: Acute Keep perineal area clean and dry Apply Nystatin powder TID Discontinue antifungal ointment (5) Morbid (severe) obesity due to excess calories Current Visit: Yes Status: Chronic Subjective Patient reports: still having pain, tolerating a regular diet, flatus, afebrile, other (Patient complaint of pain in vaginal area from yeast infection ) Objective Vital Signs - Last 8 Hours Temp Pulse Resp BP Pulse Ox 09/20/18 06:49 98.3 F 104 18 144/75 95 09/20/18 03:46 98.3 F 109 14 138/70 95 Intake and Output 09/19/18 09/20/18 09/20/18 23:59 07:59 15:59 Intake Total 1200 / 4250 1300 / 1500 200 / 1500 Output Total 1400 / 3100 850 / 850 Balance -200 / 1150 450 / 650 200 / 650 Intake: IV Fluids 1200 / 3650 1300 / 1500 200 / 1500 0.9 % Sodium Chloride 1,000 ML 1000 / 2000 1000 / 1000 @ 125 mls/hr IVC .Q8H [facility] Rx#: [id number] Cipro Premix 400 MG/200 ML 400 200 / 600 200 / 200 mg In 200 ml @ 200 mls/hr IVPB Q12HR [facility] Rx#:[id number] Cleocin Premix 600 MG/50 ML 600 100 / 100 mg In 50 ml @ 50 mls/hr IVPB Q8H [facility] Rx#:[id number] Diflucan Premix 400 MG/200 ML 200 / 200 400 mg In 200 ml @ 200 mls/hr IVPB ONCE ONE Rx#:[id number] Oral 0 / 600 0 / 0 Output: Urine 0 / 1400 Catheter 1350 / 1600 750 / 750 Female External Catheter 1000 / 1000 Wound Drainage 50 / 100 100 / 100 Left [place] 10 / 60 0 / 0 Left [place] 40 / 40 100 / 100 Other: Blood Glucose* 338 265 - General physical appearance well developed, well nourished, moderate distress, moderate pain, obese - Eyes PERRL, normal ocular movement - ENT normal mucosa, atraumatic, normocephalic - Neck Neck exam: trachea midline - Respiratory normal respiratory effort, clear to auscultation, other (diminished bibasilar bases) - Cardiovascular Cardiovascular exam: Present: tachycardia - Abdomen Abdomen: Present: bowel sounds present, soft, non tender - Incision Incision: Present: erythema (mild), serous, open (LLE wound with skin graft intact, moderate amount of serous drainage without odor noted, mild erythema surrounding wound noted; Wound vac reapplied without difficulty) - Genitourinary other (salmon catheter to SD; pernial area with erythema noted from yeast infection, tender to examination) - Neurologic CN 2-12 grossly intact - Musculoskeletal other (physical deconditioning) - Psychiatric oriented to person, oriented to place, speech is normal, memory intact - Labs 09/20/18 07:21 09/20/18 07:21 Diabetes panel 09/20/18 Range/Units 07:21 Sodium 135 L (136-145) mEq/L Potassium 4.8 (3.5-5.1) mEq/L Chloride 104 (98-107) mEq/L Carbon Dioxide 21 L (23-29) mEq/L BUN 42 H (8-23) mg/dL Creatinine 1.46 H (0.60-1.20) mg/dL Glucose 270 H (70-105) mg/dL Calcium 8.8 (8.6-10.3) mg/dL Calcium panel 09/20/18 Range/Units 07:21 Calcium 8.8 (8.6-10.3) mg/dL Pituitary panel 09/20/18 Range/Units 07:21 Sodium 135 L (136-145) mEq/L Potassium 4.8 (3.5-5.1) mEq/L Chloride 104 (98-107) mEq/L Carbon Dioxide 21 L (23-29) mEq/L BUN 42 H (8-23) mg/dL Creatinine 1.46 H (0.60-1.20) mg/dL Glucose 270 H (70-105) mg/dL Calcium 8.8 (8.6-10.3) mg/dL Adrenal panel 09/20/18 Range/Units 07:21 Sodium 135 L (136-145) mEq/L Potassium 4.8 (3.5-5.1) mEq/L Chloride 104 (98-107) mEq/L Carbon Dioxide 21 L (23-29) mEq/L BUN 42 H (8-23) mg/dL Creatinine 1.46 H (0.60-1.20) mg/dL Glucose 270 H (70-105) mg/dL Calcium 8.8 (8.6-10.3) mg/dL - VTE Reasons for not Prescribing Prophylaxis: Treatment not Indicated - Low risk for VTE Consult Discharge Plan - Plan Referrals: Patric Verde DO [Primary Care Provider] - - Attending Attestation For this encounter, I have reviewed the PATTERN VAULT CLERK or PA documentation, treatment plan, and medical decision making; and I have had face to face time with this patient. <Johnathon Pena - Last Filed: 09/20/18 22:11> Date of Encounter: 09/20/18 Objective Vital Signs - Last 8 Hours Temp Pulse Resp BP Pulse Ox 09/20/18 20:55 98.0 F 99 18 129/70 92 09/20/18 16:34 98.3 F 105 17 127/73 93 Intake and Output 09/20/18 09/20/18 09/20/18 07:59 15:59 23:59 Intake Total 1300 / 2600 350 / 2600 950 / 2600 Output Total 850 / 900 0 / 900 50 / 900 Balance 450 / 1700 350 / 1700 900 / 1700 Intake: IV Fluids 1300 / 2600 350 / 2600 950 / 2600 0.9 % Sodium Chloride 1,000 ML 1000 / 1950 950 / 1950 @ 125 mls/hr IVC .Q8H [facility] Rx#: [id number] Cipro Premix 400 MG/200 ML 400 200 / 200 mg In 200 ml @ 200 mls/hr IVPB Q12HR [facility] Rx#:[id number] Cleocin Premix 600 MG/50 ML 600 100 / 150 50 / 150 mg In 50 ml @ 50 mls/hr IVPB Q8H [facility] Rx#:[id number] Diflucan Premix 200 MG/100 ML 100 / 100 200 mg In 100 ml @ 100 mls/hr IVPB DAILY [facility] Rx#:[id number] Diflucan Premix 400 MG/200 ML 200 / 200 400 mg In 200 ml @ 200 mls/hr IVPB ONCE ONE Rx#:[id number] Oral 0 / 0 0 / 0 Output: Urine 0 / 0 Catheter 750 / 750 Wound Drainage 100 / 150 0 / 150 50 / 150 Left Lower [place] 0 / 0 0 / 0 Left [place] 100 / 150 50 / 150 Other: Blood Glucose* 265 269 275 - Labs 09/20/18 07:21 09/20/18 07:21 Diabetes panel 09/20/18 Range/Units 07:21 Sodium 135 L (136-145) mEq/L Potassium 4.8 (3.5-5.1) mEq/L Chloride 104 (98-107) mEq/L Carbon Dioxide 21 L (23-29) mEq/L BUN 42 H (8-23) mg/dL Creatinine 1.46 H (0.60-1.20) mg/dL Glucose 270 H (70-105) mg/dL Calcium 8.8 (8.6-10.3) mg/dL Calcium panel 09/20/18 Range/Units 07:21 Calcium 8.8 (8.6-10.3) mg/dL Pituitary panel 09/20/18 Range/Units 07:21 Sodium 135 L (136-145) mEq/L Potassium 4.8 (3.5-5.1) mEq/L Chloride 104 (98-107) mEq/L Carbon Dioxide 21 L (23-29) mEq/L BUN 42 H (8-23) mg/dL Creatinine 1.46 H (0.60-1.20) mg/dL Glucose 270 H (70-105) mg/dL Calcium 8.8 (8.6-10.3) mg/dL Adrenal panel 09/20/18 Range/Units 07:21 Sodium 135 L (136-145) mEq/L Potassium 4.8 (3.5-5.1) mEq/L Chloride 104 (98-107) mEq/L Carbon Dioxide 21 L (23-29) mEq/L BUN 42 H (8-23) mg/dL Creatinine 1.46 H (0.60-1.20) mg/dL Glucose 270 H (70-105) mg/dL Calcium 8.8 (8.6-10.3) mg/dL - Attending Attestation I reviewed the above assessment and evaluation with the nurse practitioner and agree with the above plan.
[2018-09-20] MEDS: Insulin LISPRO 300 UNITS/3 ML VIAL SQ SCH ×4 (11:13→17:12)
[2018-09-20] MEDS: Insulin DETEMIR 100 UNIT/ML X5UNITS SQ SCH (20:03)
[2018-09-21] MEDS: *HR* OxyCODONE/APAP 5/325 TABLET PO PRN ×2 (03:16→20:43)
[2018-09-21 03:49] LABS: Hematocrit 30.1 % (35.3-44.9); Hemoglobin 9.4 g/dL (11.5-15.4); Mean Corpuscular HGB Conc 31.2 g/dL (31.6-35.5); Mean Corpuscular Hemoglobin 29.1 pg (28.0-33.3); Mean Corpuscular Volume 93.2 fL (83.0-100.0); Mean Platelet Volume 9.3 fL (9.4-12.4); Nucleated Red Blood Cells 0.3 /100 WBC (0); Platelet Count 396 K/mcL (140-400); Red Blood Count 3.23 M/mcL (3.82-4.97); Red Cell Distribution Width 14.7 % (11.5-14.5); White Blood Count 18.8 K/mcL (4.3-11.1)
[2018-09-21 03:59] LABS: Calcium 9.2 mg/dL (8.6-10.3); Potassium 4.5 mEq/L (3.5-5.1)
[2018-09-21 04:36] LABS: Lymphocytes # 3.2 K/mcL (0.6-4.6); Monocytes # 2.3 K/mcL (0.0-1.3)
[2018-09-21 04:37] LABS: Platelet Estimate Normal (Normal); Reactive Lymphocytes Present (Not Present)
[2018-09-21] MEDS: Clindamycin 600 MG/50 ML 600 MG/50 ML IV.SOLN IVPB SCH ×3 (05:14→20:43)
[2018-09-21] MEDS: *HR* Heparin 5,000 UNIT/ML VIAL SQ SCH ×2 (05:15→17:03)
[2018-09-21] MEDS: 0.9 % Sodium Chloride 1,000 ML IVC SCH ×2 (05:15→12:50)
[2018-09-21] MEDS ORDERED: 0.9 % Sodium Chloride 1,000 ML IVC ONE (07:15)
[2018-09-21] MEDS: Pantoprazole 40 MG VIAL IVP SCH (07:50)
[2018-09-21] MEDS: Insulin LISPRO 300 UNITS/3 ML VIAL SQ SCH ×6 (07:50→17:05)
[2018-09-21] MEDS: Fluconazole 200 MG/100 ML 200 MG/100 ML BAG IVPB SCH (07:51)
[2018-09-21] MEDS: Nystatin POWDER 30 GM BOTTLE TP SCH ×3 (08:02→20:44)
--- NOTE | 2018-09-21 09:45 | AcuteCareSurgery Progress Note ---
<Mehnaz Saucedo - Last Filed: 09/21/18 10:03> Date of Encounter: 09/21/18 Time of Encounter: 08:00 - Assessment and Plan (1) Laceration Current Visit: Yes Status: Acute Date of procedure: 09/14/18 Pre-op diagnosis: Complex laceration and degloving injury left lower extremity Post-op diagnosis: same Procedure: #1 complex laceration closure 30 cm x 15 cm multiple layers #2 debridement of full-thickness skin 30 cm x 15 cm #3 split-thickness skin graft 25 cm x 12 cm Anesthesia: ZENONA Surgeon: Paulie Perales POD #7 as above. Wound vac D/c'd today She continues to have erythema of the LLE. There is no exudate noted. There is moderate amount of continued serous/liquified hematoma drainage. Skin graft is viable. She does have erythema noted aprox extension 3-4 cm outside margins of LLE wound circumferential. There is no fluctuance or exudate noted. Daily wound care to include nonadherent dressing, ABD pad, Kerlix, lona wrap. If drainage cannot be controlled, we may need to consider replacing wound vac at decreased suction (75 mmhg) Her WBC continues to rise (etiology unclear). Her ATBX remain as below. Ancef (09/14-, 2 doses) Cipro (started 09/18 Q12 hr) Cleocin (started 09/19 Q8H) Diflucan (loading dose 400 mg 09/19, then 200 mg daily 09/20) CALLY is slowly improving. Will check Fena and give 1L saline bolus Plan: Continue IV ATBX IVF supportive care and discomfort management Repeat am labs wound care IS Foot pumps Hep SQ Protonix Aggressive pulm toileting and mobility d/c planning to SNF pending clinical course (2) CALLY (acute kidney injury) Current Visit: Yes Status: Acute IVF continued, Salmon cath in place. Creatinine 1.8>>1.59>>1.46>>1.42 Bolus with 1L NS over two hours, continue MIV at 125 ml/hr Fena Renal ultrasound pending Will need to closely monitor for fluid overload. Will obtain a standing scale weight today (3) Diabetes Current Visit: Yes Status: Acute Prepandrial insulin add 09/04/2018 Continue Levemir HS Low dose SSI, can be incrased if indicated Qualifiers: Diabetes mellitus type: type 2 Diabetes mellitus longterm insulin use: with longterm use Diabetes mellitus complication status: with other specified complication Qualified Code(s): E11.69 - Type 2 diabetes mellitus with other specified complication; Z79.4 - correction (current) use of insulin (4) HTN (hypertension) Current Visit: Yes Status: Acute Continue home medications hold nephrotoxins (HCTZ held) hold clonidine (may resume as indicated) Resume cozaar Qualifiers: Hypertension type: essential hypertension Qualified Code(s): I10 - Essential (primary) hypertension (5) Candidiasis Current Visit: Yes Status: Acute Diflucan IV Nystatin powder (6) Morbid (severe) obesity due to excess calories Current Visit: Yes Status: Chronic Bariatric bed; air loss mattress (7) UTI (urinary tract infection) Current Visit: Yes Status: Acute No at time of salmon insertion, unclear if present at previous facility Culture pending See ATBX above Qualifiers: Urinary tract infection type: site unspecified Hematuria presence: without hematuria Qualified Code(s): N39.0 - Urinary tract infection, site not spec ified (8) Leukocytosis Current Visit: Yes Status: Acute Etiology unclear. Likely multifactorial given UTI, reactionary, vs underlying pathological. Blood cultures ordered CXR PA/LAT Urine culture pending Qualifiers: Leukocytosis type: bandemia Qualified Code(s): D72.825 - Bandemia Subjective Patient reports: still having pain, flatus, no bowel movement, shortness of breath (with movement in the bed), afebrile Narrative: Reports continued LLE pain and burning that is aggravated by touch or "even someone breathing on it is stabbing and burning." Reports she feels no improvement in the labia burning and swelling. She has not gotten out of bed. Objective Vital Signs - Last 8 Hours Temp Pulse Resp BP Pulse Ox 09/21/18 07:35 98.5 F 77 18 138/50 99 09/21/18 03:57 97.6 F 109 16 169/84 96 Intake and Output 09/20/18 09/21/18 09/21/18 23:59 07:59 15:59 Intake Total 1200 / 2850 1250 / 1300 50 / 1300 Output Total 50 / 900 1000 / 1000 Balance 1150 / 1950 250 / 300 50 / 300 Intake: IV Fluids 1200 / 2850 1250 / 1300 50 / 1300 0.9 % Sodium Chloride 1,000 ML 950 / 1950 1000 / 1050 50 / 1050 @ 125 mls/hr IVC .Q8H [facility] Rx#: [id number] Cipro Premix 400 MG/200 ML 400 200 / 400 200 / 200 mg In 200 ml @ 200 mls/hr IVPB Q12HR SON Rx#:[id number] Cleocin Premix 600 MG/50 ML 600 50 / 200 50 / 50 mg In 50 ml @ 50 mls/hr IVPB Q8H SON Rx#:[id number] Oral 0 / 0 0 / 0 Output: Urine 0 / 0 Catheter 900 / 900 Wound Drainage 50 / 150 100 / 100 Left [place] 50 / 150 100 / 100 Other: Blood Glucose* 275 246 - General physical appearance no distress, moderate pain, obese - ENT atraumatic, normocephalic - Neck Neck exam: trachea midline - Respiratory other (decreased resp effort; decreased breath sounds, course) - Cardiovascular Cardiovascular exam: Present: RRR, distant heart sounds - Abdomen Abdomen: Present: bowel sounds present, soft, non tender - Genitourinary other (labia remain edematous and excoriated) - Integumentary other (ecchymosis noted to BL Upper and LE. Erythema noted to LUE (forearm). LLE wound vac is removed (see a/p for further detail)) - Neurologic normal sensation - Musculoskeletal normal posture - Psychiatric oriented to time, oriented to person, oriented to place - Labs 09/21/18 03:20 09/21/18 03:20 Diabetes panel 09/21/18 Range/Units 03:20 Sodium 137 (136-145) mEq/L Potassium 4.5 (3.5-5.1) mEq/L Chloride 105 (98-107) mEq/L Carbon Dioxide 22 L (23-29) mEq/L BUN 39 H (8-23) mg/dL Creatinine 1.42 H (0.60-1.20) mg/dL Glucose 226 H (70-105) mg/dL Calcium 9.2 (8.6-10.3) mg/dL Calcium panel 09/21/18 Range/Units 03:20 Calcium 9.2 (8.6-10.3) mg/dL Pituitary panel 09/21/18 Range/Units 03:20 Sodium 137 (136-145) mEq/L Potassium 4.5 (3.5-5.1) mEq/L Chloride 105 (98-107) mEq/L Carbon Dioxide 22 L (23-29) mEq/L BUN 39 H (8-23) mg/dL Creatinine 1.42 H (0.60-1.20) mg/dL Glucose 226 H (70-105) mg/dL Calcium 9.2 (8.6-10.3) mg/dL Adrenal panel 09/21/18 Range/Units 03:20 Sodium 137 (136-145) mEq/L Potassium 4.5 (3.5-5.1) mEq/L Chloride 105 (98-107) mEq/L Carbon Dioxide 22 L (23-29) mEq/L BUN 39 H (8-23) mg/dL Creatinine 1.42 H (0.60-1.20) mg/dL Glucose 226 H (70-105) mg/dL Calcium 9.2 (8.6-10.3) mg/dL - VTE Reasons for not Prescribing Prophylaxis: Treatment not Indicated - Low risk for VTE Consult Discharge Plan - Plan Referrals: Patric Verde DO [Primary Care Provider] - <Lázaro Madison - Last Filed: 09/21/18 13:45> Date of Encounter: 09/21/18 - Assessment and Plan (1) Laceration Current Visit: Yes Status: Acute (2) Diabetes Current Visit: Yes Status: Acute Qualifiers: Diabetes mellitus type: type 2 Diabetes mellitus intermediate teacher insulin use: with longterm use Diabetes mellitus complication status: with other specified complication Qualified Code(s): E11.69 - Type 2 diabetes mellitus with other specified complication; Z79.4 - correction (current) use of insulin (3) HTN (hypertension) Current Visit: Yes Status: Acute Qualifiers: Hypertension type: essential hypertension Qualified Code(s): I10 - Essential (primary) hypertension Objective Vital Signs - Last 8 Hours Temp Pulse Resp BP Pulse Ox 09/21/18 11:29 97.9 F 114 18 156/63 94 09/21/18 07:35 98.5 F 77 18 138/50 99 Intake and Output 09/20/18 09/21/18 09/21/18 23:59 07:59 15:59 Intake Total 1200 / 2850 1250 / 3070 1820 / 3070 Output Total 50 / 900 1000 / 1750 750 / 1750 Balance 1150 / 1950 250 / 1320 1070 / 1320 Intake: IV Fluids 1200 / 2850 1250 / 2950 1700 / 2950 0.9 % Sodium Chloride 1,000 ML 950 / 1950 1000 / 2600 1600 / 2600 @ 500 mls/hr IVC .Q2H [facility] Rx#: [id number] Cipro Premix 400 MG/200 ML 400 200 / 400 200 / 200 mg In 200 ml @ 200 mls/hr IVPB Q12HR SON Rx#:[id number] Cleocin Premix 600 MG/50 ML 600 50 / 200 50 / 50 mg In 50 ml @ 50 mls/hr IVPB Q8H SON Rx#:[id number] Diflucan Premix 200 MG/100 ML 100 / 100 200 mg In 100 ml @ 100 mls/hr IVPB DAILY SON Rx#:[id number] Oral 0 / 0 0 / 120 120 / 120 Output: Urine 0 / 0 Catheter 900 / 1650 750 / 1650 Wound Drainage 50 / 150 100 / 100 Left Chatman 50 / 150 100 / 100 Other: Meal Breakfast Percent of Meal Consumed 100% Blood Glucose* 275 246 239 - Labs 09/21/18 03:20 09/21/18 03:20 Diabetes panel 09/21/18 Range/Units 03:20 Sodium 137 (136-145) mEq/L Potassium 4.5 (3.5-5.1) mEq/L Chloride 105 (98-107) mEq/L Carbon Dioxide 22 L (23-29) mEq/L BUN 39 H (8-23) mg/dL Creatinine 1.42 H (0.60-1.20) mg/dL Glucose 226 H (70-105) mg/dL Calcium 9.2 (8.6-10.3) mg/dL Calcium panel 09/21/18 Range/Units 03:20 Calcium 9.2 (8.6-10.3) mg/dL Pituitary panel 09/21/18 Range/Units 03:20 Sodium 137 (136-145) mEq/L Potassium 4.5 (3.5-5.1) mEq/L Chloride 105 (98-107) mEq/L Carbon Dioxide 22 L (23-29) mEq/L BUN 39 H (8-23) mg/dL Creatinine 1.42 H (0.60-1.20) mg/dL Glucose 226 H (70-105) mg/dL Calcium 9.2 (8.6-10.3) mg/dL Adrenal panel 09/21/18 Range/Units 03:20 Sodium 137 (136-145) mEq/L Potassium 4.5 (3.5-5.1) mEq/L Chloride 105 (98-107) mEq/L Carbon Dioxide 22 L (23-29) mEq/L BUN 39 H (8-23) mg/dL Creatinine 1.42 H (0.60-1.20) mg/dL Glucose 226 H (70-105) mg/dL Calcium 9.2 (8.6-10.3) mg/dL - Attending Attestation I examined this patient and my medical decision-making was reviewed with the POT RUNNER. I agree with the documented findings, disposition and treatment plan as described below. Pt without new complaint. DC vac today. [place] red erythema associated with LLE wound is very similar to erythema of LUE ecchymosis. Continue IV abx. Gerry mir.
[2018-09-21] MEDS: Insulin DETEMIR 100 UNIT/ML X5UNITS SQ SCH (20:43)
[2018-09-21] MEDS: Gabapentin 300 MG CAPSULE PO SCH (20:43)
[2018-09-21] MEDS: Bisacodyl 10 MG RECTAL SUPPOSITORY RC SCH (20:44)
[2018-09-22] MEDS: 0.9 % Sodium Chloride 1,000 ML IVC SCH ×3 (02:35→13:16)
[2018-09-22] MEDS: Clindamycin 600 MG/50 ML 600 MG/50 ML IV.SOLN IVPB SCH ×3 (04:09→21:49)
[2018-09-22] MEDS: *HR* OxyCODONE/APAP 5/325 TABLET PO PRN ×2 (06:20→17:40)
[2018-09-22] MEDS: *HR* Heparin 5,000 UNIT/ML VIAL SQ SCH ×2 (06:20→17:39)
[2018-09-22 06:39] LABS: Hematocrit 27.8 % (35.3-44.9); Hemoglobin 8.7 g/dL (11.5-15.4); Mean Corpuscular HGB Conc 31.3 g/dL (31.6-35.5); Mean Corpuscular Volume 92.7 fL (83.0-100.0); Monocytes # 1.5 K/mcL (0.0-1.3); Nucleated Red Blood Cells 0.4 /100 WBC (0); Platelet Count 402 K/mcL (140-400); White Blood Count 16.5 K/mcL (4.3-11.1)
[2018-09-22 06:58] LABS: Calcium 8.8 mg/dL (8.6-10.3); Magnesium 1.7 mg/dL (1.6-2.6); Phosphorous 3.4 mg/dL (2.7-4.5); Potassium 4.5 mEq/L (3.5-5.1)
[2018-09-22 07:56] LABS: Eosinophils # 0.5 K/mcL (0.0-0.6); Lymphocytes # 3.6 K/mcL (0.6-4.6); Neutrophils # 10.9 K/mcL (1.6-8.9)
[2018-09-22 07:57] LABS: Platelet Estimate Normal (Normal)
[2018-09-22] MEDS: Insulin LISPRO 300 UNITS/3 ML VIAL SQ SCH ×6 (08:04→17:43)
[2018-09-22] MEDS: Fluconazole 200 MG/100 ML 200 MG/100 ML BAG IVPB SCH (10:51)
[2018-09-22] MEDS: Pantoprazole 40 MG VIAL IVP SCH (10:53)
[2018-09-22] MEDS: Nystatin POWDER 30 GM BOTTLE TP SCH ×3 (10:56→22:49)
--- NOTE | 2018-09-22 15:28 | AcuteCareSurgery Progress Note ---
<Mehnaz Saucedo - Last Filed: 09/22/18 15:20> Date of Encounter: 09/22/18 Time of Encounter: 07:30 - Assessment and Plan (1) Laceration Current Visit: Yes Status: Acute Date of procedure: 09/14/18 Pre-op diagnosis: Complex laceration and degloving injury left lower extremity Post-op diagnosis: same Procedure: #1 complex laceration closure 30 cm x 15 cm multiple layers #2 debridement of full-thickness skin 30 cm x 15 cm #3 split-thickness skin graft 25 cm x 12 cm Anesthesia: GETA Surgeon: Paulie Perales POD #8 as above. She was started on gabapentin yesterday for neuropathic pain. She states this has been effective. We do have room to increase if necessary. LLE erythema improved today. There remains no exudate. Drainage is decreasing. Graft remains viable. Her WBC is now decreasing, but she is noted to have rectal temp of 99.9 Her ATBX remain as below. Ancef (09/14-, 2 doses) Cipro (started 09/18 Q12 hr) Cleocin (started 09/19 Q8H) Diflucan (loading dose 400 mg 09/19, then 200 mg daily 09/20) She remains reluctant to participate in care. She is refusing repositioning in the bed, refusing getting out of bed despite best efforts per RN and PT/OT. She reports that she feels too dizzy to move and/or get out of bed. She is fearful of a fall. She has been educated at length on the risks of getting out of bed including DVT, PE, bedsores, atelectasis, pneumonia, sepsis, . Plan: Continue IV ATBX Stop IVF supportive care and discomfort management Repeat am labs wound care IS Foot pumps Hep SQ Protonix Aggressive pulm toileting and mobility d/c planning to SNF pending clinical course and insurance authorization (2) Dizziness Current Visit: Yes Status: Acute Reports dizziness with any activity. She is not orthostatic. There've been no arrhythmias noted on EKG nor telemetry. She appears to be fearful of a fall and I'm concerned this is contributing to dizziness secondary to anxiety however I have ordered a one-time dose of meclizine as a trial. We can continue this if this is effective. Will defer management to hospitalist (3) CALLY (acute kidney injury) Current Visit: Yes Status: Acute Creatinine downtrending. she was at 1.2 on admission. We have stopped IVF for concern for her getting fluid overload. Of note, I/O do not accurately reflect her fluid status as she had been incontinent in the 1st few days of her admission and therefore accurate output was not recorded. We have consulted hospitalist for management. It is okay with surgery to discontinue the Salmon catheter if internal medicine is agreeable. Will defer management (4) Diabetes Current Visit: Yes Status: Acute Prepandrial insulin add 09/04/2018, glucose is improving Continue Levemir HS Low dose SSI, can be increased if indicated A1C pending. Defer management to IM. 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 Again, patient participation in OOB and hygeine would be most effective OK to d/c salmon cath if ok with IM (7) Morbid (severe) obesity due to excess calories Current Visit: Yes Status: Chronic Bariatric bed; air loss mattress (8) UTI (urinary tract infection) Current Visit: Yes Status: Acute Noted at time of salmon insertion, unclear if present at previous facility Culture enterococcus faecalis with sensitivity to ciprofloxacin See ATBX above Qualifiers: Urinary tract infection type: site unspecified Hematuria presence: without hematuria Qualified Code(s): N39.0 - Urinary tract infection, site not specified (9) Leukocytosis Current Visit: Yes Status: Acute Etiology unclear. Likely multifactorial given UTI, reactionary, vs underlying pathological. Blood cultures ordered and pending CXR PA/LAT unremarkable Urine culture as above. WBC is downtrending Qualifiers: Leukocytosis type: bandemia Qualified Code(s): D72.825 - Bandemia Subjective Patient reports: still having pain, flatus, no bowel movement, afebrile (on initial assessment. Noted rectal temp 99.9 1330) Narrative: she reports dizziness with activity. Objective Vital Signs - Last 8 Hours Temp Pulse Resp BP BP BP BP 09/22/18 14:32 99.4 F 115 16 144/76 09/22/18 09:45 120/63 175/81 175/77 Pulse Ox 09/22/18 14:32 90 09/22/18 09:45 Intake and Output 09/21/18 09/22/18 09/22/18 23:59 07:59 15:59 Intake Total 610 / 4970 50 / 1050 1000 / 1050 Output Total 375 / 2150 750 / 1400 650 / 1400 Balance 235 / 2820 -700 / -350 350 / -350 Intake: IV Fluids 250 / 4250 50 / 1050 1000 / 1050 0.9 % Sodium Chloride 1,000 ML 900 / 900 @ 125 mls/hr IVC .Q8H [facility] Rx#: [id number] Cipro Premix 400 MG/200 ML 400 200 / 400 mg In 200 ml @ 200 mls/hr IVPB Q12HR SON Rx#:[id number] Cleocin Premix 600 MG/50 ML 600 50 / 150 50 / 50 mg In 50 ml @ 50 mls/hr IVPB Q8H [facility] Rx#:[id number] Diflucan Premix 200 MG/100 ML 100 / 100 200 mg In 100 ml @ 100 mls/hr IVPB DAILY SON Rx#:[id number] Oral 360 / 720 0 / 0 Output: Urine 0 / 0 Straight Cath 350 / 350 Catheter 375 / 2025 750 / 1050 300 / 1050 Other: Meal Dinner Lunch Percent of Meal Consumed 100% 100% Weight 161.1 kg Blood Glucose* 208 225 191 Patient Weight 09/22/18 23:59 Weight 161.1 kg - General physical appearance moderate distress, obese - ENT atraumatic, normocephalic - Neck Neck exam: trachea midline - Respiratory normal expansion, normal respiratory effort - Cardiovascular Cardiovascular exam: Present: tachycardia, murmurs, distant heart sounds - Abdomen Abdomen: Present: bowel sounds present, soft, non tender - Genitourinary other (erythema) - Integumentary other (See a/p for LLE asst; otherwise multiple areas of echymosis noted ) - Neurologic normal sensation - Musculoskeletal normal posture - Psychiatric oriented to time, oriented to person, oriented to place - Labs 09/22/18 06:18 09/22/18 06:18 Diabetes panel 09/22/18 Range/Units 06:18 Sodium 144 (136-145) mEq/L Potassium 4.5 (3.5-5.1) mEq/L Chloride 105 (98-107) mEq/L Carbon Dioxide 21 L (23-29) mEq/L BUN 32 H (8-23) mg/dL Creatinine 1.27 H (0.60-1.20) mg/dL Glucose 206 H (70-105) mg/dL Calcium 8.8 (8.6-10.3) mg/dL Calcium panel 09/22/18 Range/Units 06:18 Calcium 8.8 (8.6-10.3) mg/dL Phosphorus 3.4 (2.7-4.5) mg/dL Pituitary panel 09/22/18 Range/Units 06:18 Sodium 144 (136-145) mEq/L Potassium 4.5 (3.5-5.1) mEq/L Chloride 105 (98-107) mEq/L Carbon Dioxide 21 L (23-29) mEq/L BUN 32 H (8-23) mg/dL Creatinine 1.27 H (0.60-1.20) mg/dL Glucose 206 H (70-105) mg/dL Calcium 8.8 (8.6-10.3) mg/dL Adrenal panel 09/22/18 Range/Units 06:18 Sodium 144 (136-145) mEq/L Potassium 4.5 (3.5-5.1) mEq/L Chloride 105 (98-107) mEq/L Carbon Dioxide 21 L (23-29) mEq/L BUN 32 H (8-23) mg/dL Creatinine 1.27 H (0.60-1.20) mg/dL Glucose 206 H (70-105) mg/dL Calcium 8.8 (8.6-10.3) mg/dL - VTE Reasons for not Prescribing Prophylaxis: Treatment not Indicated - Low risk for VTE Consult Discharge Plan - Plan Referrals: Fredi Borja MD [Non-Partnered Physician] - 10/04/18 9:00 am (IN WOUND CARE) Patric Verde DO [Primary Care Provider] - <Fredi Borja - Last Filed: 09/22/18 18:17> Date of Encounter: 09/22/18 Objective Vital Signs - Last 8 Hours Temp Pulse Resp BP Pulse Ox 09/22/18 15:24 99.9 F H 09/22/18 14:32 99.4 F 115 16 144/76 90 Intake and Output 09/22/18 09/22/18 09/22/18 07:59 15:59 23:59 Intake Total 250 / 1675 1000 / 1675 425 / 1675 Output Total 750 / 1400 650 / 1400 Balance -500 / 275 350 / 275 425 / 275 Intake: IV Fluids 250 / 1675 1000 / 1675 425 / 1675 0.9 % Sodium Chloride 1,000 ML 900 / 1275 375 / 1275 @ 125 mls/hr IVC .Q8H [facility] Rx#: [id number] Cipro Premix 400 MG/200 ML 400 200 / 200 mg In 200 ml @ 200 mls/hr IVPB Q12HR S[facility] Rx#:[id number] Cleocin Premix 600 MG/50 ML 600 50 / 100 50 / 100 mg In 50 ml @ 50 mls/hr IVPB Q8H [facility] Rx#:[id number] Diflucan Premix 200 MG/100 ML 100 / 100 200 mg In 100 ml @ 100 mls/hr IVPB DAILY SON Rx#:[id number] Oral 0 / 0 Output: Straight Cath 350 / 350 Catheter 750 / 1050 300 / 1050 Other: Meal Lunch Percent of Meal Consumed 100% Weight 161.1 kg Blood Glucose* 225 191 215 Patient Weight 09/22/18 23:59 Weight 161.1 kg - Labs 09/22/18 06:18 09/22/18 06:18 Diabetes panel 09/22/18 09/22/18 Range/Units 06:18 06:18 Sodium 144 (136-145) mEq/L Potassium 4.5 (3.5-5.1) mEq/L Chloride 105 (98-107) mEq/L Carbon Dioxide 21 L (23-29) mEq/L BUN 32 H (8-23) mg/dL Creatinine 1.27 H (0.60-1.20) mg/dL Glucose 206 H (70-105) mg/dL Hemoglobin A1c 13.2 H ( - 5.6) % Calcium 8.8 (8.6-10.3) mg/dL Calcium panel 09/22/18 Range/Units 06:18 Calcium 8.8 (8.6-10.3) mg/dL Phosphorus 3.4 (2.7-4.5) mg/dL Pituitary panel 09/22/18 Range/Units 06:18 Sodium 144 (136-145) mEq/L Potassium 4.5 (3.5-5.1) mEq/L Chloride 105 (98-107) mEq/L Carbon Dioxide 21 L (23-29) mEq/L BUN 32 H (8-23) mg/dL Creatinine 1.27 H (0.60-1.20) mg/dL Glucose 206 H (70-105) mg/dL Calcium 8.8 (8.6-10.3) mg/dL Adrenal panel 09/22/18 Range/Units 06:18 Sodium 144 (136-145) mEq/L Potassium 4.5 (3.5-5.1) mEq/L Chloride 105 (98-107) mEq/L Carbon Dioxide 21 L (23-29) mEq/L BUN 32 H (8-23) mg/dL Creatinine 1.27 H (0.60-1.20) mg/dL Glucose 206 H (70-105) mg/dL Calcium 8.8 (8.6-10.3) mg/dL - Attending Attestation patient seen and examined. i have reviewed all labs, imaging, and notes. i have discussed the case in detail with the YIELD IMPROVEMENT ENGINEER; i agree with the above assessment and plan.
--- NOTE | 2018-09-22 17:09 | Internal Medicine Consult Note ---
<Devonte Purdy - Last Filed: 09/22/18 18:11> Date of Encounter: 09/22/18 - Assessment and Plan (1) UTI (urinary tract infection) Current Visit: Yes Status: Suspected Qualifiers: Urinary tract infection type: acute cystitis Hematuria presence: without hematuria Qualified Code(s): N30.00 - Acute cystitis without hematuria (2) Diabetes Current Visit: Yes Status: Chronic Qualifiers: Diabetes mellitus type: type 2 Diabetes mellitus custodial insulin use: with custodial use Diabetes mellitus complication status: with hyperglycemia Qualified Code(s): E11.65 - Type 2 diabetes mellitus with hyperglycemia; 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 Marshall is a 72 year old female Internal Medicine - CN: Meds Glimepiride [Amaryl] 4 mg PO HS 09/14/18 [History] Insulin ASPART [NovoLOG] 5 unit SQ TIDWM 09/14/18 [History] Insulin Glargine [Lantus] 40 units SQ HS 09/14/18 [History] Irbesartan/Hydrochlorothiazide [Avalide 300-12.5 mg Tablet] 1 tab PO DAILY 09/14/18 [History] Rosuvastatin Calcium [Crestor] 10 mg PO DAILY 09/14/18 [History] cloNIDine HCl [CloNIDine HCl] 0.1 mg PO BID 09/14/18 [History] Cholecalciferol (D-3) [Vitamin D] 5,000 unit PO DAILY 09/15/18 [History] Allergy/AdvReac Type Severity Reaction Status Date / Time morphine Allergy Hives Verified 09/15/18 21:01 propoxyphene [From Darvon] Allergy Hives Verified 09/15/18 21:01 Sulfa (Sulfonamide Allergy Hives Verified 09/15/18 21:01 Antibiotics) latex AdvReac Rash Verified 09/19/18 08:33 Hospitalist - CN: Exam - Constitutional Vitals: Temp Pulse Resp BP Pulse Ox 99.9 F H 115 16 144/76 90 09/22/18 15:24 09/22/18 14:32 09/22/18 14:32 09/22/18 14:32 09/22/18 14:32 Internal Medicine - CN: Reslt - Labs CBC & Chem 7: 09/22/18 06:18 09/22/18 06:18 Labs: Short CBC 09/22/18 Range/Units 06:18 WBC 16.5 H (4.3-11.1) K/mcL Hgb 8.7 L (11.5-15.4) g/dL Hct 27.8 L (35.3-44.9) % Plt Count 402 H (140-400) K/mcL Neutrophils # 10.9 H (1.6-8.9) K/mcL BMP 09/22/18 06:18 Sodium 144 Potassium 4.5 Chloride 105 Carbon Dioxide 21 L BUN 32 H Creatinine 1.27 H Glucose 206 H Calcium 8.8 - ABG Interpretation ABG results: PT/INR, D-dimer PT 11.6 Seconds (9.4-12.1) 09/14/18 12:38 Consult Discharge Plan - Plan Referrals: Fredi Borja MD [Non-Partnered Physician] - 10/04/18 9:00 am (IN WOUND CARE) Patric Verde DO [Primary Care Provider] - - Attending Attestation I examined this patient and my medical decision-making was reviewed with the Resident Physician on 09/22/18. I agree with the documented findings, disposition and treatment plan as described except to the extent set forth below. Ms Marshall is currently admitted for degloving injury of L leg. We have been consulted for management of chronic medical problems as well as dizziness (positional). At this time her biggest complaint is dizziness and vision changes. Started on Neurontin yesterday. Exam: Alert Comfortable at this time. Mucus membranes dry. Neck supple. NC. Heart reg and tachy. No wheeze. Abd soft. Dressing intact L leg. R leg with ecchymosis and edema. Rec: Continue salmon for now for skin. PRN Meclizine. Restart Clonidine for BP and heart rate. Monitor vitals. Monitor neuro status on Neurontin. Consider change abx to Unasyn for Enterococcus coverage (though sensitive to Cipro, Ampicillin is drug of choice). Will follow with you. Thank you for consult. <Chio Wilson I - Last Filed: 09/22/18 19:36> Date of Encounter: 09/22/18 Time of Encounter: 05:20 - Assessment and Plan (1) CALLY (acute kidney injury) Current Visit: Yes Status: Acute Assessment and plan: Creatinine downtrending. she was at 1.27 on admission. We have stopped IVF for concern for her getting fluid overload. plan : avoid nephrotoxic agents continue monitoring BMP (2) Dizziness Current Visit: Yes Status: Acute Assessment and plan: this is mostly positional dizziness , She is not orthostatic , no arrhythmias noted on EKG nor telemetry plan : meclizine PRN (3) Diabetes Current Visit: Yes Status: Chronic Assessment and plan: today blood sugar is 206 . 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 continue . (5) HTN (hypertension) Current Visit: Yes Status: Chronic Assessment and plan: will continue her losartan and we added clonidine Qualifiers: Hypertension type: essential hypertension Qualified Code(s): I10 - Essenti al (primary) hypertension (6) UTI (urinary tract infection) Current Visit: Yes Status: Suspected Assessment and plan: UA +for UTI plan Continue salmon for now we changed antibiotic to ampicillin for enterococcus coverage Qualifiers: Urinary tract infection type: acute cystitis Hematuria presence: without hematuria Qualified Code(s): N30.00 - Acute cystitis without hematuria (7) Laceration Current Visit: Yes Status: Acute Assessment and plan: POD 8 as above. She was started on gabapentin yesterday for neuropathic pain . continue plan as per surgery recommendations (8) Tachycardia Current Visit: Yes Status: Acute Assessment and plan: EKG yesterday was negative for any arrythemia plan : continue vitals monitoring repeat EKG at morning may consider CTA later - Time Spent With Patient Total time spent is greater than 50% in coordination of care (as documented) at patient's floor/unit and/or counseling patient: Internal Medicine - CN: HPI - Data of Consult Requesting Physician: Paulie Perales MD - Consult Narrative History of present illness: Ms. Marshall is a 72 year old female with past medical history of hypertension and diabetis and morbid obesity admitted for degloving injury after falling down and [employer] and having 60 cm laceration of left leg from knee to ankle . patient underwent surgery and today is postoperative day 7. patient is doing better . still has pain in bilateral legs , no fever , but has tachycardia and dizziness . Past Med Surg Social Fam HX - Past Medical History Medical history: diabetes, hypertension Psychiatric history: no psych history - Past Surgical History Additional surgical history: thyroid cyst removed - Social History Smoking Status: Never smoker Smokeless Tobacco Status: No Alcohol use: none Drug use: none - Constitutional Constitutional: as per HPI, no lethargy, no malaise - Cardiovascular Cardiovascular ROS IM: edema, no chest pain, no diaphoresis, no dyspnea - Respiratory Respiratory: no cough, no dyspnea, no wheezing - Gastrointestinal Gastrointestinal: no abdominal pain, no diarrhea, no nausea - Genitourinary Genitourinary: no dysuria, no flank pain - Musculoskeletal Musculoskeletal ROS IM: no deformity, no joint swelling, no numbness - Neurological Neurological ROS: dizziness, no abnormal gait, no focal weakness - Psychiatric Psychiatric: no anxiety, no confusion, no mood swings Hospitalist - CN: Exam - Constitutional Vitals: Temp Pulse Resp BP Pulse Ox 99.9 F H 115 16 144/76 90 09/22/18 15:24 09/22/18 14:32 09/22/18 14:32 09/22/18 14:32 09/22/18 14:32 General appearance IM: Present: A&O X 3, morbidly obese, no acute distress Exam: . - Head Head exam: Present: atraumatic, normal inspection - Eye Eye exam: Present: EOMI, sclera anicteric - Respiratory Respiratory exam: Present: CTAB - Cardiovascular Cardiovascular exam IM: Present: RRR, +S1, +S2 - GI/Abdominal GI/Abdominal exam IM: Present: normal bowel sounds, soft - Extremities Exam Extremities exam IM: Present: pedal edema, tenderness, warm, radial pulses palpable and symmetrical - Neurological Exam Neurological exam: Present: alert, oriented X3, no focal deficits - Psychiatric Psychiatric exam: Present: normal affect, normal mood Internal Medicine - CN: Reslt - Labs CBC & Chem 7: 09/22/18 06:18 09/22/18 06:18 Labs: Short CBC 09/22/18 Range/Units 06:18 WBC 16.5 H (4.3-11.1) K/mcL Hgb 8.7 L (11.5-15.4) g/dL Hct 27.8 L (35.3-44.9) % Plt Count 402 H (140-400) K/mcL Neutrophils # 10.9 H (1.6-8.9) K/mcL BMP 09/22/18 06:18 Sodium 144 Potassium 4.5 Chloride 105 Carbon Dioxide 21 L BUN 32 H Creatinine 1.27 H Glucose 206 H Calcium 8.8 - ABG Interpretation ABG results: PT/INR, D-dimer PT 11.6 Seconds (9.4-12.1) 09/14/18 12:38
[2018-09-22 17:50] LABS: Estimated Average Glucose 332 mg/dl
[2018-09-22] MEDS: Amoxicillin 500 MG CAPSULE PO SCH (21:46)
[2018-09-22] MEDS: cloNIDine HCl 0.1 MG TABLET PO SCH (21:48)
[2018-09-22] MEDS: Gabapentin 300 MG CAPSULE PO SCH (21:48)
[2018-09-22] MEDS: Bisacodyl 10 MG RECTAL SUPPOSITORY RC SCH (21:48)
[2018-09-22] MEDS: Insulin DETEMIR 100 UNIT/ML X5UNITS SQ SCH (21:49)
[2018-09-23 02:49] LABS: Hematocrit 28.9 % (35.3-44.9); Hemoglobin 8.8 g/dL (11.5-15.4); Mean Corpuscular HGB Conc 30.4 g/dL (31.6-35.5); Mean Corpuscular Hemoglobin 28.7 pg (28.0-33.3); Mean Corpuscular Volume 94.1 fL (83.0-100.0); Mean Platelet Volume 9.4 fL (9.4-12.4); Nucleated Red Blood Cells 0.2 /100 WBC (0); Platelet Count 425 K/mcL (140-400); Red Blood Count 3.07 M/mcL (3.82-4.97); Red Cell Distribution Width 14.8 % (11.5-14.5); White Blood Count 15.5 K/mcL (4.3-11.1)
[2018-09-23 03:03] LABS: Calcium 8.7 mg/dL (8.6-10.3); Potassium 4.4 mEq/L (3.5-5.1)
[2018-09-23 04:06] LABS: Eosinophils # 0.3 K/mcL (0.0-0.6); Lymphocytes # 3.7 K/mcL (0.6-4.6); Monocytes # 3.1 K/mcL (0.0-1.3); Neutrophils # 8.1 K/mcL (1.6-8.9); Platelet Estimate Normal (Normal); Reactive Lymphocytes Present (Not Present)
[2018-09-23] MEDS: Clindamycin 600 MG/50 ML 600 MG/50 ML IV.SOLN IVPB SCH ×3 (04:36→21:27)
[2018-09-23] MEDS: *HR* OxyCODONE/APAP 5/325 TABLET PO PRN ×2 (05:33→21:10)
[2018-09-23] MEDS: *HR* Heparin 5,000 UNIT/ML VIAL SQ SCH ×2 (05:33→17:27)
[2018-09-23] MEDS: Insulin LISPRO 300 UNITS/3 ML VIAL SQ SCH ×7 (08:17→21:13)
[2018-09-23] MEDS: Amoxicillin 500 MG CAPSULE PO SCH ×3 (08:18→21:10)
[2018-09-23] MEDS: Pantoprazole 40 MG VIAL IVP SCH (08:18)
[2018-09-23] MEDS: cloNIDine HCl 0.1 MG TABLET PO SCH ×2 (08:18→21:10)
[2018-09-23] MEDS: Nystatin POWDER 30 GM BOTTLE TP SCH ×3 (08:19→21:12)
[2018-09-23] MEDS: Fluconazole 200 MG/100 ML 200 MG/100 ML BAG IVPB SCH (08:19)
--- NOTE | 2018-09-23 08:49 | Internal Med Progress Note ---
<Devonte Purdy - Last Filed: 09/23/18 12:57> Hospitalist Progress Note - Encounter Date of Encounter: 09/23/18 - Exam Vitals: Temp Pulse Resp BP Pulse Ox 98.1 F 88 15 107/64 95 09/23/18 11:23 09/23/18 11:23 09/23/18 11:23 09/23/18 11:23 09/23/18 11:23 - Assessment and Plan (1) Diabetes Current Visit: Yes Status: Chronic (2) HTN (hypertension) Current Visit: Yes Status: Chronic (3) CALLY (acute kidney injury) Current Visit: Yes Status: Acute (4) UTI (urinary tract infection) Current Visit: Yes Status: Suspected (5) Dizziness Current Visit: Yes Status: Chronic (6) Morbid obesity with BMI of 50.0-59.9, adult Current Visit: Yes Status: Chronic (7) Degloving injury of left lower leg Current Visit: Yes Status: Acute (8) Thrombocytosis Current Visit: Yes Status: Acute - Time Spent with Patient Total time spent is greater than 50% in coordination of care (as documented) at patient's floor/unit and/or counseling patient: Internal Medicine: Result - Labs CBC & Chem 7: 09/23/18 01:41 09/23/18 01:41 Labs: Short CBC 09/23/18 Range/Units 01:41 WBC 15.5 H (4.3-11.1) K/mcL Hgb 8.8 L (11.5-15.4) g/dL Hct 28.9 L (35.3-44.9) % Plt Count 425 H (140-400) K/mcL Neutrophils # 8.1 (1.6-8.9) K/mcL BMP 09/23/18 01:41 Sodium 137 Potassium 4.4 Chloride 109 H Carbon Dioxide 19 L BUN 26 H Creatinine 1.24 H Glucose 209 H Calcium 8.7 - ABG Interpretation ABG results: PT/INR, D-dimer PT 11.6 Seconds (9.4-12.1) 09/14/18 12:38 Consult Discharge Plan - Plan Referrals: Fredi Borja MD [Non-Partnered Physician] - 10/04/18 9:00 am (IN WOUND CARE) Patric Verde DO [Primary Care Provider] - - Attending Attestation I examined this patient and my medical decision-making was reviewed with the Resident Physician on 09/23/18. I agree with the documented findings, disposition and treatment plan as described except to the extent set forth below. Ms Marshall is currently admitted for degloving injury to L leg. We are following for UTI and chronic medical issues. Ms Marshall is feeling a little better. Her BP and heartrate have decreased with resumption of Clonidine as well as abx change to Amoxicillin. Dizziness about the same. Exam: Alert. Comfortable. NC. Mucus membranes dry. EOMI. Neck supple. Heart distant and regular - not tachy now. Lungs clear anterior ly. Abd soft. Dressing intact. Ecchymoses noted. Edema noted. Moves all extremities. No rash. Plan: Continue Amoxil. D/C Cipro. Continue Clonidine as ordered. May need diuresis. Following with you. <Bradly Steel - Last Filed: 09/23/18 20:36> Hospitalist Progress Note - Encounter Date of Encounter: 09/23/18 Time of Encounter: 08:46 - Subjective Interval History: Patient seen and examined resting comfortably in bed. Patient reports feeling better today. Patient's antibiotic regimen has been adjusted. Continue clonidine for hypertension. Blood glucose levels are better controlled with increased dose of sliding scale insulin. Dizziness has improved. - Exam Vitals: Temp Pulse Resp BP Pulse Ox 98.8 F 94 15 118/70 95 09/23/18 07:18 09/23/18 07:18 09/23/18 07:18 09/23/18 07:18 09/23/18 07:18 Exam: General appearance: Present: A&O X 3, morbidly obese, no acute distress Head exam: Present: atraumatic, normal inspection HEENT exam: Present: EOMI, sclera anicteric, mucous membranes dry Respiratory exam: Present: CTAB, no wheezing Cardiovascular exam: Present: Distant heart sounds, +S1, +S2 GI/Abdominal exam: Present: normal bowel sounds, soft Extremities exam: Present: Left lower extremity dressing in place, warm, pulses intact, ecchymosis left lower extremity Neurological exam: Present: alert, oriented X3, no focal deficits Psychiatric exam: Present: normal affect, normal mood - Assessment and Plan (1) Degloving injury of left lower leg Current Visit: Yes Status: Acute Assessment and Plan: Management per surgery/primary team. (2) Dizziness Current Visit: Yes Status: Chronic Assessment and Plan: Positional dizziness with vision changes. Patient was recently started on Neurontin Improved with Meclizine prn. (3) UTI (urinary tract infection) Current Visit: Yes Status: Suspected Assessment and Plan: Urine culture revealed Enterococcus faecalis Continue Ampicillin Continue Cronin for now (4) CALLY (acute kidney injury) Current Visit: Yes Status: Acute Assessment and Plan: Creatinine downtrending, was at 1.27 on admission. Renal function Improving. Stopped IVF due to concern for fluid overload. Avoid nephrotoxic agents Continue monitoring (5) Diabetes Current Visit: Yes Status: Chronic Assessment and Plan: Hemoglobin A1c 13.2 on 09/22/18 Continue detemir 40 units, medium dose sliding scale insulin Diabetic diet Continue monitoring (6) HTN (hypertension) Current Visit: Yes Status: Chronic Assessment and Plan: Blood pressure stable Continue home meds May need diuresis. (7) Thrombocytosis Current Visit: Yes Status: Acute Assessment and Plan: Likely reactive thrombocytosis. Continue monitoring (8) Morbid obesity with BMI of 50.0-59.9, adult Current Visit: Yes Status: Chronic Assessment and Plan: BMI 59.1 Lifestyle modification DVT Prophylaxis: Heparin subcutaneous - Time Spent with Patient Total time spent is greater than 50% in coordination of care (as documented) at patient's floor/unit and/or counseling patient: Internal Medicine: Result - Labs CBC & Chem 7: 09/23/18 01:41 09/23/18 01:41 Labs: Short CBC 09/23/18 Range/Units 01:41 WBC 15.5 H (4.3-11.1) K/mcL Hgb 8.8 L (11.5-15.4) g/dL Hct 28.9 L (35.3-44.9) % Plt Count 425 H (140-400) K/mcL Neutrophils # 8.1 (1.6-8.9) K/mcL BMP 09/23/18 01:41 Sodium 137 Potassium 4.4 Chloride 109 H Carbon Dioxide 19 L BUN 26 H Creatinine 1.24 H Glucose 209 H Calcium 8.7 - ABG Interpretation ABG results: PT/INR, D-dimer PT 11.6 Seconds (9.4-12.1) 09/14/18 12:38 - VTE Reasons for not Prescribing Prophylaxis: Treatment not Indicated - Low risk for VTE <Devonte Purdy - Last Filed: 09/23/18 12:57> (1) Diabetes Qualifiers: Diabetes mellitus type: type 2 Diabetes mellitus 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 Diabetes mellitus complication status: with hyperglycemia Qualified Code(s): E11.65 - Type 2 diabetes mellitus with hyperglycemia; 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 (2) HTN (hypertension) Qualifiers: Hypertension type: essential hypertension Qualified Code(s): I10 - Essential (primary) hypertension (4) UTI (urinary tract infection) Qualifiers: Urinary tract infection type: acute cystitis Hematuria presence: without hematuria Qualified Code(s): N30.00 - Acute cystitis without hematuria <Bradly Steel - Last Filed: 09/23/18 20:36> (1) Degloving injury of left lower leg Qualifiers: Encounter type: initial encounter Qualified Code(s): S81.802A - Unspecified open wound, left lower leg, initial encounter (3) UTI (urinary tract infection) Qualifiers: Urinary tract infection type: acute cystitis Hematuria presence: without hematuria Qualified Code(s): N30.00 - Acute cystitis without hematuria (5) Diabetes Qualifiers: Diabetes mellitus type: type 2 Diabetes mellitus nursing home insulin use: with nursing home use Diabetes mellitus complication status: with hyperglycemia Qualified Code(s): E11.65 - Type 2 diabetes mellitus with hyperglycemia; 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
--- NOTE | 2018-09-23 13:26 | AcuteCareSurgery Progress Note ---
Date of Encounter: 09/23/18 Time of Encounter: 13:23 - Assessment and Plan (1) Laceration Current Visit: Yes Status: Acute 73F POD #9 s/p #1 complex laceration closure 30 cm x 15 cm multiple layers, #2 debridement of full-thickness skin 30 cm x 15 cm #3 split-thickness skin graft 25 cm x 12 cm; patient with CALLY currently improving; tolerating diet, WBC trending down; IS, PT/OT appreciate hospitalist recs, recommend tailoring abx regimen down dressing changes as directed plan for nursing facility on 09/25 Subjective Patient reports: no new complaints, feels better, still having pain, afebrile Objective Vital Signs - Last 8 Hours Temp Pulse Resp BP Pulse Ox 09/23/18 11:23 98.1 F 88 15 107/64 95 09/23/18 11:04 98.7 F 73 16 114/68 97 09/23/18 07:18 98.8 F 94 15 118/70 95 Intake and Output 09/22/18 09/23/18 09/23/18 23:59 07:59 15:59 Intake Total 475 / 1725 450 / 600 150 / 600 Output Total 300 / 1700 1200 / 2150 950 / 2150 Balance 175 / 25 -750 / -1550 -800 / -1550 Intake: IV Fluids 475 / 1725 450 / 600 150 / 600 0.9 % Sodium Chloride 1,000 ML 375 / 1275 @ 125 mls/hr IVC .Q8H SON Rx#: [id number] Cipro Premix 400 MG/200 ML 400 400 / 400 mg In 200 ml @ 200 mls/hr IVPB Q12HR SON Rx#:[id number] Cleocin Premix 600 MG/50 ML 600 100 / 150 50 / 100 50 / 100 mg In 50 ml @ 50 mls/hr IVPB Q8H SON Rx#:[id number] Diflucan Premix 200 MG/100 ML 100 / 100 200 mg In 100 ml @ 100 mls/hr IVPB DAILY SON Rx#:[id number] Oral 0 / 0 0 / 0 Output: Urine 700 / 700 Catheter 300 / 1350 1200 / 1450 250 / 1450 Other: Stool Size Small Stool Consistency formed Stool Color Brown # Bowel Movements 0 Blood Glucose* 246 196 183 - General physical appearance no distress - Respiratory normal expansion, normal respiratory effort - Cardiovascular Cardiovascular exam: Present: RRR - Abdomen Abdomen: Present: soft, non tender - Integumentary no rash, other (dressing in tact; skin graft viable; periwound decreased erythema) - Neurologic CN 2-12 grossly intact - Musculoskeletal normal posture - Psychiatric oriented to time, oriented to person, oriented to place - Labs 09/23/18 01:41 09/23/18 01:41 Diabetes panel 09/22/18 09/23/18 Range/Units 06:18 01:41 Sodium 137 (136-145) mEq/L Potassium 4.4 (3.5-5.1) mEq/L Chloride 109 H (98-107) mEq/L Carbon Dioxide 19 L (23-29) mEq/L BUN 26 H (8-23) mg/dL Creatinine 1.24 H (0.60-1.20) mg/dL Glucose 209 H (70-105) mg/dL Hemoglobin A1c 13.2 H ( - 5.6) % Calcium 8.7 (8.6-10.3) mg/dL Calcium panel 09/23/18 Range/Units 01:41 Calcium 8.7 (8.6-10.3) mg/dL Pituitary panel 09/23/18 Range/Units 01:41 Sodium 137 (136-145) mEq/L Potassium 4.4 (3.5-5.1) mEq/L Chloride 109 H (98-107) mEq/L Carbon Dioxide 19 L (23-29) mEq/L BUN 26 H (8-23) mg/dL Creatinine 1.24 H (0.60-1.20) mg/dL Glucose 209 H (70-105) mg/dL Calcium 8.7 (8.6-10.3) mg/dL Adrenal panel 09/23/18 Range/Units 01:41 Sodium 137 (136-145) mEq/L Potassium 4.4 (3.5-5.1) mEq/L Chloride 109 H (98-107) mEq/L Carbon Dioxide 19 L (23-29) mEq/L BUN 26 H (8-23) mg/dL Creatinine 1.24 H (0.60-1.20) mg/dL Glucose 209 H (70-105) mg/dL Calcium 8.7 (8.6-10.3) mg/dL - VTE Reasons for not Prescribing Prophylaxis: Treatment not Indicated - Low risk for VTE Consult Discharge Plan - Plan Referrals: Fredi Borja MD [Non-Partnered Physician] - 10/04/18 9:00 am (IN WOUND CARE) Patric Verde DO [Primary Care Provider] -
[2018-09-23] MEDS: Gabapentin 300 MG CAPSULE PO SCH (21:11)
[2018-09-23] MEDS: Bisacodyl 10 MG RECTAL SUPPOSITORY RC SCH (21:12)
[2018-09-23] MEDS: Insulin DETEMIR 100 UNIT/ML X5UNITS SQ SCH (21:12)
[2018-09-24] MEDS: Clindamycin 600 MG/50 ML 600 MG/50 ML IV.SOLN IVPB SCH ×3 (05:26→21:16)
[2018-09-24] MEDS: *HR* Heparin 5,000 UNIT/ML VIAL SQ SCH ×2 (05:27→17:11)
[2018-09-24] MEDS: *HR* OxyCODONE/APAP 5/325 TABLET PO PRN ×3 (05:43→21:16)
[2018-09-24 06:07] LABS: Hematocrit 27.2 % (35.3-44.9); Hemoglobin 8.3 g/dL (11.5-15.4); Mean Corpuscular HGB Conc 30.5 g/dL (31.6-35.5); Mean Corpuscular Volume 95.1 fL (83.0-100.0); Mean Platelet Volume 9.2 fL (9.4-12.4); Nucleated Red Blood Cells 0.1 /100 WBC (0); Platelet Count 442 K/mcL (140-400); Red Blood Count 2.86 M/mcL (3.82-4.97); Red Cell Distribution Width 14.9 % (11.5-14.5)
[2018-09-24 06:25] LABS: Potassium 4.4 mEq/L (3.5-5.1)
[2018-09-24 06:37] LABS: Eosinophils # 0.3 K/mcL (0.0-0.6); Lymphocytes # 4.2 K/mcL (0.6-4.6); Neutrophils # 10.2 K/mcL (1.6-8.9)
[2018-09-24 06:38] LABS: Hypochromasia Present (Not Present); Reactive Lymphocytes Present (Not Present)
--- NOTE | 2018-09-24 07:53 | Internal Med Progress Note ---
<Devonte Purdy - Last Filed: 09/24/18 13:35> Hospitalist Progress Note - Encounter Date of Encounter: 09/24/18 - Exam Vitals: Temp Pulse Resp BP Pulse Ox 97.9 F 92 16 122/59 91 09/24/18 10:33 09/24/18 10:33 09/24/18 10:33 09/24/18 10:33 09/24/18 10:33 - Assessment and Plan (1) Diabetes Current Visit: Yes Status: Chronic (2) HTN (hypertension) Current Visit: Yes Status: Chronic (3) CALLY (acute kidney injury) Current Visit: Yes Status: Acute (4) UTI (urinary tract infection) Current Visit: Yes Status: Suspected (5) Dizziness Current Visit: Yes Status: Chronic (6) Morbid obesity with BMI of 50.0-59.9, adult Current Visit: Yes Status: Chronic (7) Degloving injury of left lower leg Current Visit: Yes Status: Acute (8) Thrombocytosis Current Visit: Yes Status: Acute (9) BRENT treated with BiPAP Current Visit: Yes Status: Chronic - Time Spent with Patient Total time spent is greater than 50% in coordination of care (as documented) at patient's floor/unit and/or counseling patient: Internal Medicine: Result - Labs CBC & Chem 7: 09/24/18 05:20 09/24/18 05:20 Labs: Short CBC 09/24/18 Range/Units 05:20 WBC 16.0 H (4.3-11.1) K/mcL Hgb 8.3 L (11.5-15.4) g/dL Hct 27.2 L (35.3-44.9) % Plt Count 442 H (140-400) K/mcL Neutrophils # 10.2 H (1.6-8.9) K/mcL BMP 09/24/18 05:20 Sodium 135 L Potassium 4.4 Chloride 108 H Carbon Dioxide 21 L BUN 36 H Creatinine 1.34 H Glucose 145 H Calcium 9.0 - ABG Interpretation ABG results: PT/INR, D-dimer PT 11.6 Seconds (9.4-12.1) 09/14/18 12:38 Consult Discharge Plan - Plan Referrals: Fredi Borja MD [Non-Partnered Physician] - 10/04/18 9:00 am (IN WOUND CARE) Patric Verde DO [Primary Care Provider] - - Attending Attestation I examined this patient and my medical decision-making was reviewed with the Resident Physician on 09/24/18. I agree with the documented findings, disposition and treatment plan as described except to the extent set forth below. Ms Marshall is currently admitted for degloving injury L leg. We are managing UTI and chronic medical problems. Ms Marshall feels OK at this time. No fever or chills. No new signs of infection. No CP or SOB. BP has been better controlled. Heartrate improved. Exam: Alert. Comfortable. NC. Mucus membranes moist. Neck supple. Exam otherwise as above. Plan: Continue Amoxil. Pt remains on Clindamycin per surgery. Has continued leukocytosis and increased bands - no sign of new infection. Monitor for diarrhea (at risk for C diff). If no new issues and otherwise stable anticipate medically OK to go to [facility] tomorrow. <Bradly Steel - Last Filed: 09/24/18 14:34> Hospitalist Progress Note - Encounter Date of Encounter: 09/24/18 Time of Encounter: 07:51 - Subjective Interval History: Patient seen and examined resting comfortably in bed. Patient reports feeling better today. Blood glucose levels are stable. Dizziness has resolved. Supplemental O2 via NC was discontinued this morning. - Exam Vitals: Temp Pulse Resp BP Pulse Ox 98.4 F 91 16 108/67 93 09/24/18 06:48 09/24/18 06:48 09/24/18 06:48 09/24/18 06:48 09/24/18 06:48 Exam: General appearance: Present: A&O X 3, morbidly obese, no acute distress Head exam: Present: atraumatic, normal inspection HEENT exam: Present: EOMI, sclera anicteric, mucous membranes dry Respiratory exam: Present: CTAB, no wheezing Cardiovascular exam: Present: Distant heart sounds, +S1, +S2 GI/Abdominal exam: Present: normal bowel sounds, soft, red urine in salmon due to Pyridium use Extremities exam: Present: Left lower extremity dressing in place, warm, pulses intact, ecchymosis left lower extremity. 3+ lower extremity edema Skin exam: warm and dry, LLE dressing C/D/I Neurological exam: Present: alert, oriented X3, no focal deficits Psychiatric exam: Present: normal affect, normal mood - Assessment and Plan (1) Degloving injury of left lower leg Current Visit: Yes Status: Acute Assessment and Plan: Management per surgery/primary team. (2) Dizziness Current Visit: Yes Status: Chronic Assessment and Plan: Positional dizziness with vision changes. Patient was recently started on Neurontin Improved with Meclizine prn. (3) UTI (urinary tract infection) Current Visit: Yes Status: Suspected Assessment and Plan: Urine culture revealed Enterococcus faecalis Continue Ampicillin Continue Salmon for now (4) CALLY (acute kidney injury) Current Visit: Yes Status: Acute Assessment and Plan: Creatinine downtrending, was at 1.27 on admission. Renal function Improving. Stopped IVF due to concern for fluid overload. Avoid nephrotoxic agents Continue monitoring (5) Diabetes Current Visit: Yes Status: Chronic Assessment and Plan: Hemoglobin A1c 13.2 on 09/22/18 Continue detemir 40 units, medium dose sliding scale insulin Diabetic diet Continue monitoring (6) HTN (hypertension) Current Visit: Yes Status: Chronic Assessment and Plan: Blood pressure stable Continue home meds May need diuresis. (7) Thrombocytosis Current Visit: Yes Status: Acute Assessment and Plan: Likely reactive thrombocytosis. Continue monitoring (8) BRENT treated with BiPAP Current Visit: Yes Status: Chronic Assessment and Plan: Continue bipap qHS (9) Morbid obesity with BMI of 50.0-59.9, adult Current Visit: Yes Status: Chronic Assessment and Plan: BMI 59.1 Lifestyle modification DVT Prophylaxis: Heparin subcutaneous - Time Spent with Patient Total time spent is greater than 50% in coordination of care (as documented) at patient's floor/unit and/or counseling patient: Internal Medicine: Result - Labs CBC & Chem 7: 09/24/18 05:20 09/24/18 05:20 Labs: Short CBC 09/24/18 Range/Units 05:20 WBC 16.0 H (4.3-11.1) K/mcL Hgb 8.3 L (11.5-15.4) g/dL Hct 27.2 L (35.3-44.9) % Plt Count 442 H (140-400) K/mcL Neutrophils # 10.2 H (1.6-8.9) K/mcL BMP 09/24/18 05:20 Sodium 135 L Potassium 4.4 Chloride 108 H Carbon Dioxide 21 L BUN 36 H Creatinine 1.34 H Glucose 145 H Calcium 9.0 - ABG Interpretation ABG results: PT/INR, D-dimer PT 11.6 Seconds (9.4-12.1) 09/14/18 12:38 - Pulse Oximetry Interpretation Digit-Finger Pulse Oximetry Readin (On 3L O2 via NC) Actions taken: other (discontinued supplemental O2) - VTE Reasons for not Prescribing Prophylaxis: Treatment not Indicated - Low risk for VTE <Devonte Purdy - Last Filed: 09/24/18 13:35> (1) Diabetes Qualifiers: Diabetes mellitus type: type 2 Diabetes mellitus custodial insulin use: with lobsterman use Diabetes mellitus complication status: with hyperglycemia Qualified Code(s): E11.65 - Type 2 diabetes mellitus with hyperglycemia; Z79.4 - detention (current) use of insulin (2) HTN (hypertension) Qualifiers: Hypertension type: essential hypertension Qualified Code(s): I10 - Essential (primary) hypertension (4) UTI (urinary tract infection) Qualifiers: Urinary tract infection type: acute cystitis Hematuria presence: without hematuria Qualified Code(s): N30.00 - Acute cystitis without hematuria (7) Degloving injury of left lower leg Qualifiers: Encounter type: initial encounter Qualified Code(s): S81.802A - Unspecified open wound, left lower leg, initial encounter <Bradly Steel - Last Filed: 09/24/18 14:34> (1) Degloving injury of left lower leg Qualifiers: Encounter type: initial encounter Qualified Code(s): S81.802A - Unspecified open wound, left lower leg, initial encounter (3) UTI (urinary tract infection) Qualifiers: Urinary tract infection type: acute cystitis Hematuria presence: without hematuria Qualified Code(s): N30.00 - Acute cystitis without hematuria (5) Diabetes Qualifiers: Diabetes mellitus type: type 2 Diabetes mellitus custodial insulin use: with custodial use Diabetes mellitus complication status: with hyperglycemia Qualified Code(s): E11.65 - Type 2 diabetes mellitus with hyperglycemia; Z79.4 - detention (current) use of insulin (6) HTN (hypertension) Qualifiers: Hypertension type: essential hypertension Qualified Code(s): I10 - Essential (primary) hypertension
[2018-09-24] MEDS: Insulin LISPRO 300 UNITS/3 ML VIAL SQ SCH ×7 (08:21→21:17)
[2018-09-24] MEDS: Amoxicillin 500 MG CAPSULE PO SCH ×3 (08:22→21:14)
[2018-09-24] MEDS: cloNIDine HCl 0.1 MG TABLET PO SCH ×2 (08:22→21:16)
[2018-09-24] MEDS ORDERED: Furosemide 40 MG/4 ML VIAL IVP ONE (08:22)
[2018-09-24] MEDS: Pantoprazole 40 MG VIAL IVP SCH (08:22)
[2018-09-24] MEDS: Fluconazole 200 MG/100 ML 200 MG/100 ML BAG IVPB SCH (08:22)
[2018-09-24] MEDS: Nystatin POWDER 30 GM BOTTLE TP SCH ×3 (08:23→21:17)
--- NOTE | 2018-09-24 13:07 | AcuteCareSurgery Progress Note ---
Date of Encounter: 09/24/18 Time of Encounter: 13:06 - Assessment and Plan (1) Laceration Current Visit: Yes Status: Acute 73F POD #9 s/p complex laceration closure 30 cm x 15 cm multiple layers, debridement of full-thickness skin 30 cm x 15 cm split-thickness skin graft 25 cm x 12 cm; patient with CALLY currently improving; tolerating diet, WBC trending down; IS, PT/OT appreciate hospitalist recs, recommend tailoring abx regimen down dressing changes as directed consider diuretic (ie; lasix) plan for nursing facility on 09/25 Subjective Patient reports: no new complaints Objective Vital Signs - Last 8 Hours Temp Pulse Resp BP Pulse Ox 09/24/18 10:33 97.9 F 92 16 122/59 91 09/24/18 06:48 98.4 F 91 16 108/67 93 Intake and Output 09/23/18 09/24/18 09/24/18 23:59 07:59 15:59 Intake Total 170 / 1130 150 / 150 Output Total 1050 / 1300 250 / 1300 Balance 170 / -1370 -1050 / -1150 -100 / -1150 Intake: IV Fluids 50 / 650 150 / 150 Cleocin Premix 600 MG/50 ML 600 50 / 150 50 / 50 mg In 50 ml @ 50 mls/hr IVPB Q8[facility] Rx#:[id number] Diflucan Premix 200 MG/100 ML 100 / 100 200 mg In 100 ml @ 100 mls/hr IVPB DAILY [facility] Rx#:[id number] Oral 120 / 480 Output: Catheter 1050 / 1300 250 / 1300 Other: Meal Dinner Breakfast Percent of Meal Consumed 100% 50% Weight 166.8 kg Blood Glucose* 153 143 167 Patient Weight 09/24/18 23:59 Weight 166.8 kg - General physical appearance no distress - Respiratory normal expansion, normal respiratory effort - Cardiovascular Cardiovascular exam: Present: RRR - Abdomen Abdomen: Present: soft - Integumentary no rash, no growths, other ((+)edema; ) - Neurologic CN 2-12 grossly intact - Psychiatric oriented to time, oriented to person, oriented to place - Labs 09/24/18 05:20 09/24/18 05:20 Diabetes panel 09/24/18 Range/Units 05:20 Sodium 135 L (136-145) mEq/L Potassium 4.4 (3.5-5.1) mEq/L Chloride 108 H (98-107) mEq/L Carbon Dioxide 21 L (23-29) mEq/L BUN 36 H (8-23) mg/dL Creatinine 1.34 H (0.60-1.20) mg/dL Glucose 145 H (70-105) mg/dL Calcium 9.0 (8.6-10.3) mg/dL Calcium panel 09/24/18 Range/Units 05:20 Calcium 9.0 (8.6-10.3) mg/dL Pituitary panel 09/24/18 Range/Units 05:20 Sodium 135 L (136-145) mEq/L Potassium 4.4 (3.5-5.1) mEq/L Chloride 108 H (98-107) mEq/L Carbon Dioxide 21 L (23-29) mEq/L BUN 36 H (8-23) mg/dL Creatinine 1.34 H (0.60-1.20) mg/dL Glucose 145 H (70-105) mg/dL Calcium 9.0 (8.6-10.3) mg/dL Adrenal panel 09/24/18 Range/Units 05:20 Sodium 135 L (136-145) mEq/L Potassium 4.4 (3.5-5.1) mEq/L Chloride 108 H (98-107) mEq/L Carbon Dioxide 21 L (23-29) mEq/L BUN 36 H (8-23) mg/dL Creatinine 1.34 H (0.60-1.20) mg/dL Glucose 145 H (70-105) mg/dL Calcium 9.0 (8.6-10.3) mg/dL - VTE Reasons for not Prescribing Prophylaxis: Treatment not Indicated - Low risk for VTE Consult Discharge Plan - Plan Referrals: Fredi Borja MD [Non-Partnered Physician] - 10/04/18 9:00 am (IN WOUND CARE) Patric Verde DO [Primary Care Provider] -
[2018-09-24 16:47] LABS: Hematocrit 29.9 % (35.3-44.9); Hemoglobin 9.5 g/dL (11.5-15.4); Mean Corpuscular HGB Conc 31.8 g/dL (31.6-35.5); Mean Corpuscular Hemoglobin 28.4 pg (28.0-33.3); Mean Corpuscular Volume 89.5 fL (83.0-100.0); Mean Platelet Volume 9.8 fL (9.4-12.4); Nucleated Red Blood Cells 0.2 /100 WBC (0); Platelet Count 429 K/mcL (140-400); Red Blood Count 3.34 M/mcL (3.82-4.97); Red Cell Distribution Width 14.9 % (11.5-14.5); White Blood Count 19.9 K/mcL (4.3-11.1)
[2018-09-24 17:12] LABS: Eosinophils # 0.8 K/mcL (0.0-0.6); Monocytes # 2.8 K/mcL (0.0-1.3); Neutrophils # 12.3 K/mcL (1.6-8.9)
[2018-09-24 17:13] LABS: Platelet Estimate Normal (Normal)
[2018-09-24 18:25] LABS: Calcium 9.3 mg/dL (8.6-10.3); Magnesium 1.6 mg/dL (1.6-2.6); Phosphorous 4.1 mg/dL (2.7-4.5); Potassium 4.1 mEq/L (3.5-5.1)
[2018-09-24] MEDS: Gabapentin 300 MG CAPSULE PO SCH (21:15)
[2018-09-24] MEDS: Insulin DETEMIR 100 UNIT/ML X5UNITS SQ SCH (21:17)
[2018-09-24] MEDS: Bisacodyl 10 MG RECTAL SUPPOSITORY RC SCH (21:18)
[2018-09-24] MEDS ORDERED: Furosemide 20 MG TABLET PO ONE (23:01)
[2018-09-25 05:21] LABS: Basophils # 0.2 K/mcL (0.0-0.2); Basophils % 0.9 %; Eosinophils # 0.6 K/mcL (0.0-0.6); Eosinophils % 3.6 %; Hematocrit 28.6 % (35.3-44.9); Hemoglobin 8.8 g/dL (11.5-15.4); Immature Granulocytes % 13.5 % (0-4); Lymphocytes # 3.3 K/mcL (0.6-4.6); Lymphocytes % 20.3 %; Mean Corpuscular HGB Conc 30.8 g/dL (31.6-35.5); Mean Corpuscular Hemoglobin 28.7 pg (28.0-33.3); Mean Corpuscular Volume 93.2 fL (83.0-100.0); Mean Platelet Volume 9.1 fL (9.4-12.4); Monocytes # 1.4 K/mcL (0.0-1.3); Monocytes % 8.7 %; Nucleated Red Blood Cells 0.4 /100 WBC (0); Platelet Count 471 K/mcL (140-400); Red Blood Count 3.07 M/mcL (3.82-4.97); Red Cell Distribution Width 14.9 % (11.5-14.5); White Blood Count 16.3 K/mcL (4.3-11.1)
[2018-09-25 05:27] LABS: Neutrophils # 8.6 K/mcL (1.6-8.9)
[2018-09-25 05:37] LABS: Calcium 9.3 mg/dL (8.6-10.3); Potassium 4.3 mEq/L (3.5-5.1)
[2018-09-25 05:49] LABS: Platelet Estimate Normal (Normal)
[2018-09-25] MEDS: *HR* Heparin 5,000 UNIT/ML VIAL SQ SCH (05:55)
[2018-09-25] MEDS: Insulin LISPRO 300 UNITS/3 ML VIAL SQ SCH ×4 (07:46→11:57)
[2018-09-25] MEDS ORDERED: traMADol 50 MG TABLET PO PRN (08:04)
--- NOTE | 2018-09-25 08:56 | Internal Med Progress Note ---
<Devonte Purdy - Last Filed: 09/25/18 15:34> Hospitalist Progress Note - Encounter Date of Encounter: 09/25/18 - Exam Vitals: Temp Pulse Resp BP Pulse Ox 98.7 F 97 17 146/80 88 09/25/18 10:42 09/25/18 10:42 09/25/18 10:42 09/25/18 10:42 09/25/18 10:42 - Assessment and Plan (1) Diabetes Status: Chronic (2) HTN (hypertension) Status: Chronic (3) CALLY (acute kidney injury) Status: Acute (4) UTI (urinary tract infection) Status: Suspected (5) Dizziness Status: Resolved (6) Morbid obesity with BMI of 50.0-59.9, adult Status: Chronic (7) Degloving injury of left lower leg Status: Acute (8) Thrombocytosis Status: Acute - Time Spent with Patient Total time spent is greater than 50% in coordination of care (as documented) at patient's floor/unit and/or counseling patient: Internal Medicine: Result - Labs CBC & Chem 7: 09/25/18 04:50 09/25/18 04:50 Labs: Short CBC 09/24/18 09/25/18 Range/Units 16:28 04:50 WBC 19.9 H 16.3 H (4.3-11.1) K/mcL Hgb 9.5 L 8.8 L (11.5-15.4) g/dL Hct 29.9 L 28.6 L (35.3-44.9) % Plt Count 429 H 471 H (140-400) K/mcL Neutrophils # 12.3 H 8.6 (1.6-8.9) K/mcL BMP 09/24/18 09/25/18 17:55 04:50 Sodium 135 L 137 Potassium 4.1 4.3 Chloride 105 104 Carbon Dioxide 23 23 BUN 36 H 38 H Creatinine 1.43 H 1.40 H Glucose 196 H 153 H Calcium 9.3 9.3 - ABG Interpretation ABG results: PT/INR, D-dimer PT 11.6 Seconds (9.4-12.1) 09/14/18 12:38 Consult Discharge Plan - Plan Instructions: Graft Skin (On the skin), Diabetes Mellitus Type 2 in Adults (DC), Chronic Hypertension (DC), Obesity (DC) Additional Instructions: LLE WOUND DAILY WOUND CARE: Remove dressings. Wash (recommend shower) with antibacterial soap. Cover with adaptic then ABDs. Wrap with Kerlix and then lona bandage (beginning toes) Take your medications as directed. Do not stop your antibiotics without speaking with your providers first. You are recommended to better control your diabetes and weight as not doing so will delay healing as well as increasing your risk of heart attack, stroke, loss of limbs, blindness, etc. A fire control technician b can help you follow a better diet while in rehab and at home. Continue to use your incentive spirometer while at rehab and at home. HCTZ is currently held due to your acute kidney injury. This may be resumed by the retirement doctor when appropriate. Referrals: Fredi Borja MD [Non-Partnered Physician] - 10/04/18 9:00 am (IN WOUND CARE) - Attending Attestation I examined this patient and my medical decision-making was reviewed with the Resident Physician on 09/25/18. I agree with the documented findings, disposition and treatment plan as described except to the extent set forth below. Ms Marshall is currently admitted for degloving injury L leg. We are following medical issues. Ms Marshall is feeling better. Heartrate has been up and down but overall better. No fever or chills. Dizziness resolved. Exam: Alert. Comfortable. NC. Mucus membranes moist. Heart not tachy now. No wheeze. Less edema. Plan: OK to d/c to SNF. <Chio Wilson I - Last Filed: 09/25/18 17:58> Hospitalist Progress Note - Encounter Date of Encounter: 09/25/18 Time of Encounter: 09:30 - Subjective Interval History: today pt was seen and examined , she is doing well , denies dizzines , no tachycardia . no chest pain or SOB - Exam Vitals: Temp Pulse Resp BP Pulse Ox 98.4 F 93 17 135/75 88 09/25/18 06:46 09/25/18 06:46 09/25/18 06:46 09/25/18 06:46 09/25/18 06:46 Exam: General appearance: Present: A&O X 3, morbidly obese, no acute distress Head exam: Present: atraumatic, normal inspection HEENT exam: Present: EOMI, sclera anicteric, mucous membranes dry Respiratory exam: Present: CTAB, no wheezing Cardiovascular exam: Present: Distant heart sounds, +S1, +S2 GI/Abdominal exam: Present: normal bowel sounds, soft, red urine in salmon due to Pyridium use Extremities exam: Present: Left lower extremity dressing in place, warm, pulses intact, ecchymosis left lower extremity. 3+ lower extremity edema Skin exam: warm and dry, LLE dressing C/D/I Neurological exam: Present: alert, oriented X3, no focal deficits Psychiatric exam: Present: normal affect, normal mood - Assessment and Plan (1) CALLY (acute kidney injury) Status: Acute Assessment and Plan: HCTZ is currently held. condition improved . her creatinine today is 1.4 (2) Dizziness Status: Resolved Assessment and Plan: condition improved (3) Diabetes Status: Chronic Assessment and Plan: her blood sugar today is 153 . better controlled continue diabetic diet (4) Candidiasis Status: Resolved Assessment and Plan: condition improved (5) HTN (hypertension) Status: Chronic Assessment and Plan: her blood pressure today is 135/75 . responded well to clonidine (6) UTI (urinary tract infection) Status: Suspected Assessment and Plan: she is on ampicillin day 4 (7) Laceration Status: Acute (8) Tachycardia Status: Acute Assessment and Plan: hr today is 94 . better controlled DVT Prophylaxis: Heparin subcutaneous - Time Spent with Patient Total time spent is greater than 50% in coordination of care (as documented) at patient's floor/unit and/or counseling patient: Internal Medicine: Result - Labs CBC & Chem 7: 09/25/18 04:50 09/25/18 04:50 Labs: Short CBC 09/24/18 09/25/18 Range/Units 16:28 04:50 WBC 19.9 H 16.3 H (4.3-11.1) K/mcL Hgb 9.5 L 8.8 L (11.5-15.4) g/dL Hct 29.9 L 28.6 L (35.3-44.9) % Plt Count 429 H 471 H (140-400) K/mcL Neutrophils # 12.3 H 8.6 (1.6-8.9) K/mcL BMP 09/24/18 09/25/18 17:55 04:50 Sodium 135 L 137 Potassium 4.1 4.3 Chloride 105 104 Carbon Dioxide 23 23 BUN 36 H 38 H Creatinine 1.43 H 1.40 H Glucose 196 H 153 H Calcium 9.3 9.3 - ABG Interpretation ABG results: PT/INR, D-dimer PT 11.6 Seconds (9.4-12.1) 09/14/18 12:38 - VTE Reasons for not Prescribing Prophylaxis: Treatment not Indicated - Low risk for VTE Documentation of Mechanical Device: Intermittent pneumatic compression device _ <Devonte Purdy - Last Filed: 09/25/18 15:34> (1) Diabetes Qualifiers: Diabetes mellitus type: type 2 Diabetes mellitus buttermaker continuous churn insulin use: with buttermaker continuous churn use Diabetes mellitus complication status: with hyperglycemia Qualified Code(s): E11.65 - Type 2 diabetes mellitus with hyperglycemia; Z79.4 - ferry terminal supervisor (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) use of insulin (2) HTN (hypertension) Qualifiers: Hypertension type: essential hypertension Qualified Code(s): I10 - Essential (primary) hypertension (4) UTI (urinary tract infection) Qualifiers: Urinary tract infection type: acute cystitis Hematuria presence: without hematuria Qualified Code(s): N30.00 - Acute cystitis without hematuria (7) Degloving injury of left lower leg Qualifiers: Encounter type: initial encounter Qualified Code(s): S81.802A - Unspecified open wound, left lower leg, initial encounter <Chio Wilson I - Last Filed: 09/25/18 17:58> (3) Diabetes Qualifiers: Diabetes mellitus type: type 2 Diabetes mellitus buttermaker continuous churn insulin use: with penitentiary use Diabetes mellitus complication status: with hyperglycemia Qualified Code(s): E11.65 - Type 2 diabetes mellitus with hyperglycemia; Z79.4 - 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
[2018-09-25] MEDS ORDERED: Fluconazole 40 MG/ML UDC PO SCH (09:00)
--- NOTE | 2018-09-25 09:18 | Discharge Summary ---
Orders not resulted at time of discharge: Pending orders 09/21/18 07:14 ECG 12 lead ECG [ECG] Stat 09/21/18 07:58 Culture,Blood [BC] Stat 09/23/18 06:00 EKG [ECG 12 lead ECG] [ECG] AM 0600 Date of Encounter: 09/25/18 Time of Encounter: 09:17 - Discharge Diagnosis (1) Laceration Priority: Primary Status: Acute (2) Dizziness Priority: Secondary Status: Resolved (3) CALLY (acute kidney injury) Priority: Secondary Status: Acute (4) Diabetes Priority: Secondary Status: Chronic Comments: poorly controlled. 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 (5) HTN (hypertension) Priority: Secondary Status: Chronic Qualifiers: Hypertension type: essential hypertension Qualified Code(s): I10 - E ssential (primary) hypertension (6) Candidiasis Priority: Secondary Status: Resolved (7) Morbid (severe) obesity due to excess calories Priority: Secondary Status: Chronic (8) UTI (urinary tract infection) Priority: Secondary Status: Suspected Qualifiers: Urinary tract infection type: acute cystitis Hematuria presence: without he maturia Qualified Code(s): N30.00 - Acute cystitis without hematuria (9) Leukocytosis Priority: Secondary Status: Acute Qualifiers: Leukocytosis type: bandemia Qualified Code(s): D72.825 - Bandemia General Surgery Exam Initial Vital Signs Temp Pulse Resp BP Pulse Ox 98.2 F 116 22 181/91 100 09/14/18 11:56 09/14/18 11:56 09/14/18 11:56 09/14/18 11:56 09/14/18 11:56 - General physical appearance well nourished, no distress, obese - Respiratory normal expansion, normal respiratory effort - Cardiovascular Cardiovascular exam: Present: RRR, murmurs, distant heart sounds - Abdomen Abdomen general surgery: Present: bowel sounds present, soft, non tender - Integumentary Integumentary general surgery: Present: warm and dry, other (LLE dressing in tact; to be changed upon arrival to SNF) - Neurologic Present: normal sensation - Musculoskeletal Present: normal posture - Psychiatric Psychiatric general surgery: Present: A&Ox3, appropriate, oriented to person, oriented to place, oriented to time, speech is normal, memory intact - Hospital Course Hospital course: Ms. Marshall is a 73 year old female who presented for an acute degloving laceration of the left lower extremity on 09/14/2018 after a fall while at [employer]. She was taken to the operating room on the same day where she underwent a complex laceration closure 30 cm x 15 cm multiple layers, debridement of full thickness skin 30 cm x 15 cm, split thickness skin graft 25 cm x 12 cm, wound VAC placement by Dr. Perales. The wound VAC was discontinued on postoperative day 7. Her graft was noted to remain viable. Her hospital course was complicated by uncontrolled diabetes with a notable hemoglobin A-1 C of 1 3.2, acute on suspected chronic kidney injury, tachycardia, urinary tract infection and vulvar candidiasis, and morbid obesity which required a Lizzie lit intermittently. PT/OT was consulted and recommend fdc, the patient is agreeable. Her hospital antibiotic course is detailed below. She is afebrile, pain is controlled (further pain meds to be determined by rehab physician). She has a follow-up with Dr. Borja on 10/04/2018. She reports she is feeling much better and is ready for rehab. We will begin d/c planning to SNF with a follow- up as directed. Hospital course ATBX. Ancef (09/14-, 2 doses) Cipro (started 09/18 Q12 hr) ; switched to Amoxicillin (09/22/18) Cleocin (started 09/19 Q8H) Diflucan (loading dose 400 mg 09/19, then 200 mg daily 09/20; stop 09/27/2018) - Time Spent with Patient Total time spent providing and/or coordinating discharge services: Greater than 30 minutes Specific discharge activities: d/c planning for rehab and patient education - Discharge Medications Prescriptions: New Amoxicillin [Amoxil] 500 mg PO TID capsule Clindamycin [Cleocin] 300 mg PO Q8HR capsule Fluconazole [Diflucan] 200 mg PO DAILY udc Bisacodyl [Dulcolax] 10 mg RC HS PRN supp.rect PRN Reason: constipation Metoprolol [Lopressor] 5 mg IVP Q6HR PRN vial PRN Reason: HTN and Tachycardia Gabapentin [Neurontin] 300 mg PO HS capsule Nystatin POWDER [Nystop] 1 appl TP TID bottle Docusate [Colace] 100 mg PO BID capsule Meclizine [Antivert] 25 mg PO TID PRN tablet PRN Reason: Dizziness Polyethylene Glycol 3350 [MiraLAX] 17 gm PO DAILY powd.pack Insulin LISPRO [HumaLOG] 0 units SQ HS vial Insulin LISPRO [HumaLOG] 0 units SQ TIDAC vial Insulin LISPRO [HumaLOG] 10 units SQ TIDWM vial Continued Insulin Glargine [Lantus] 40 units SQ HS Insulin ASPART [NovoLOG] 5 unit SQ TIDWM cloNIDine HCl [CloNIDine HCl] 0.1 mg PO BID Rosuvastatin Calcium [Crestor] 10 mg PO DAILY Glimepiride [Amaryl] 4 mg PO HS Cholecalciferol (D-3) [Vitamin D] 5,000 unit PO DAILY Discontinued Irbesartan/Hydrochlorothiazide [Avalide 300-12.5 mg Tablet] 1 tab PO DAILY Home Medications: Glimepiride [Amaryl] 4 mg PO HS 09/14/18 [History] Insulin ASPART [NovoLOG] 5 unit SQ TIDWM 09/14/18 [History] Insulin Glargine [Lantus] 40 units SQ HS 09/14/18 [History] Rosuvastatin Calcium [Crestor] 10 mg PO DAILY 09/14/18 [History] cloNIDine HCl [CloNIDine HCl] 0.1 mg PO BID 09/14/18 [History] Cholecalciferol (D-3) [Vitamin D] 5,000 unit PO DAILY 09/15/18 [History] Amoxicillin [Amoxil] 500 mg PO TID capsule 09/25/18 [Rx] Bisacodyl [Dulcolax] 10 mg RC HS PRN supp.rect 09/25/18 [Rx] Clindamycin [Cleocin] 300 mg PO Q8HR capsule 09/25/18 [Rx] Docusate [Colace] 100 mg PO BID capsule 09/25/18 [Rx] Fluconazole [Diflucan] 200 mg PO DAILY udc 09/25/18 [Rx] Gabapentin [Neurontin] 300 mg PO HS capsule 09/25/18 [Rx] Insulin LISPRO [HumaLOG] 0 units SQ HS vial 09/25/18 [Rx] Insulin LISPRO [HumaLOG] 0 units SQ TIDAC vial 09/25/18 [Rx] Insulin LISPRO [HumaLOG] 10 units SQ TIDWM vial 09/25/18 [Rx] Meclizine [Antivert] 25 mg PO TID PRN tablet 09/25/18 [Rx] Metoprolol [Lopressor] 5 mg IVP Q6HR PRN vial 09/25/18 [Rx] Nystatin POWDER [Nystop] 1 appl TP TID bottle 09/25/18 [Rx] Polyethylene Glycol 3350 [MiraLAX] 17 gm PO DAILY powd.pack 09/25/18 [Rx] Allergies/Adverse Reactions: Allergy/AdvReac Type Severity Reaction Status Date / Time morphine Allergy Hives Verified 09/15/18 21:01 propoxyphene [From Darvon] Allergy Hives Verified 09/15/18 21:01 Sulfa (Sulfonamide Allergy Hives Verified 09/15/18 21:01 Antibiotics) latex AdvReac Rash Verified 09/19/18 08:33 Date of admission: 09/17/18 14:36 Primary care physician: Patric Verde Consults: 09/14/18 15:16 Consult to Morning News Producer [CONS] Routine Reason for SW Consult: home health for wound vac 09/16/18 06:23 PT [Consult to Physical Therapy] [CONS] Routine Comment: Evaluate, develop and implement POC Reason for Consult: high falls risk Does patient have active BEDREST order?: No Is patient medically & hemodynamically stable?: Yes 09/16/18 06:27 OT [Consult to Occupational Therapy] [CONS] Routine Comment: Evaluate, develop and implement POC Reason for Consult: high falls Does patient have active BEDREST order?: No Is patient medically & hemodynamically stable?: Yes 09/19/18 12:44 Consult to Wound Care [CONS] Stat Reason for Consult: Airloss mattress and bariatric bed; wound care Time Notified: 12:45 Call Completed: No 09/22/18 14:58 Consult to Hospitalist [CONS] Routine Consulting Provider: Hospitalist Taco Reason for Consult: tachycardia, CALLY, UTI, chronic condition management (poorly controlled diabetes), dizziness with activity; Time Notified: 15:03 Call Completed: Yes Discharging clinician: Lázaro Verde (Mei Saucedo) Anticipated date of discharge: 09/25/18 Labs on day of discharge: Labs from last 24 hours 09/25/18 09/25/18 09/24/18 04:50 04:50 20:11 WBC 16.3 H RBC 3.07 L Hgb 8.8 L Hct 28.6 L MCV 93.2 MCH 28.7 MCHC 30.8 L RDW 14.9 H Plt Count 471 H MPV 9.1 L Immature Gran % 13.5 H Seg Neutrophils % 53.0 Band Neutrophils % Lymphocytes % 20.3 Monocytes % 8.7 Eosinophils % 3.6 Basophils % 0.9 Neutrophils # 8.6 Lymphocytes # 3.3 Monocytes # 1.4 H Eosinophils # 0.6 Basophils # 0.2 Nucleated RBCs/100 WBC 0.4 H Platelet Estimate Normal Sodium 137 Potassium 4.3 Chloride 104 Carbon Dioxide 23 BUN 38 H Creatinine 1.40 H Est GFR ( Amer) 45 L Est GFR (Non-Af Amer) 37 L BUN/Creatinine Ratio 27 H Glucose 153 H POC Glucose 238 H Calculated Osmolality 296 Calcium 9.3 Phosphorus Magnesium Specimen Rejected 09/24/18 09/24/18 09/24/18 17:55 17:32 16:38 WBC RBC Hgb Hct MCV MCH MCHC RDW Plt Count MPV Immature Gran % Seg Neutrophils % Band Neutrophils % Lymphocytes % Monocytes % Eosinophils % Basophils % Neutrophils # Lymphocytes # Monocytes # Eosinophils # Basophils # Nucleated RBCs/100 WBC Platelet Estimate Sodium 135 L Potassium 4.1 Chloride 105 Carbon Dioxide 23 BUN 36 H Creatinine 1.43 H Est GFR ( Amer) 44 L Est GFR (Non-Af Amer) 36 L BUN/Creatinine Ratio 25 Glucose 196 H POC Glucose 216 H Calculated Osmolality 294 Calcium 9.3 Phosphorus 4.1 Magnesium 1.6 Specimen Rejected Hemolyzed 09/24/18 09/24/18 09/24/18 16:28 11:18 06:53 WBC 19.9 H RBC 3.34 L Hgb 9.5 L Hct 29.9 L MCV 89.5 MCH 28.4 MCHC 31.8 RDW 14.9 H Plt Count 429 H MPV 9.8 Immature Gran % Seg Neutrophils % 56.0 Band Neutrophils % 6.0 H Lymphocytes % 20.0 Monocytes % 14.0 Eosinophils % 4.0 Basophils % Neutrophils # 12.3 H Lymphocytes # 4.0 Monocytes # 2.8 H Eosinophils # 0.8 H Basophils # Nucleated RBCs/100 WBC 0.2 H Platelet Estimate Normal Sodium Potassium Chloride Carbon Dioxide BUN Creatinine Est GFR ( Amer) Est GFR (Non-Af Amer) BUN/Creatinine Ratio Glucose POC Glucose 167 H 143 H Calculated Osmolality Calcium Phosphorus Magnesium Specimen Rejected 09/23/18 09/23/18 16:19 11:28 WBC RBC Hgb Hct MCV MCH MCHC RDW Plt Count MPV Immature Gran % Seg Neutrophils % Band Neutrophils % Lymphocytes % Monocytes % Eosinophils % Basophils % Neutrophils # Lymphocytes # Monocytes # Eosinophils # Basophils # Nucleated RBCs/100 WBC Platelet Estimate Sodium Potassium Chloride Carbon Dioxide BUN Creatinine Est GFR ( Amer) Est GFR (Non-Af Amer) BUN/Creatinine Ratio Glucose POC Glucose 149 H 183 H Calculated Osmolality Calcium Phosphorus Magnesium Specimen Rejected Preliminary micro results at discharge 09/21/18 07:58 Blood Culture - Preliminary Peripheral Venipuncture Culture is incubating and being continuously monitored for growth. Final report to follow. 09/21/18 07:59 Blood Culture - Preliminary Peripheral Venipuncture Culture is incubating and being continuously monitored for growth. Final report to follow. - Impressions ITS Impressions Chest X-Ray 09/21/18 09:45 IMPRESSION: No acute cardiopulmonary disease. D/ / 09/21/2018 11:28:34 Octavio Wood MD / lucille Interpreting Provider: Octavio Wood MD - Patient Status Disposition: Transfer SNF Condition: Fair Functional capacity at discharge: uses cane/walker Overall status at discharge: patient is not back to baseline - Discharge Instructions Instructions: Graft Skin (On the skin), Diabetes Mellitus Type 2 in Adults (DC), Chronic Hypertension (DC), Obesity (DC) Follow Up With: Fredi Borja MD [Non-Partnered Physician] - 10/04/18 9:00 am (IN WOUND CARE) Patric Verde DO [Primary Care Provider] - Forms: ED Satisfaction Letter Additional Instructions: LLE WOUND DAILY WOUND CARE: Remove dressings. Wash (recommend shower) with antibacterial soap. Cover with adaptic then ABDs. Wrap with Kerlix and then lona bandage (beginning toes) Take your medications as directed. Do not stop your antibiotics without speaking with your providers first. You are recommended to better control your diabetes and weight as not doing so will delay healing as well as increasing your risk of heart attack, stroke, loss of limbs, blindness, etc. A parachute folder can help you follow a better diet while in rehab and at home. Continue to use your incentive spirometer while at rehab and at home. HCTZ is currently held due to your acute kidney injury. This may be resumed by the fdc doctor when appropriate. - Diet and Activity Activity: as per physical therapy, increase activity as tolerated Diet: diabetic diet (1800 Calorie diabetic diet with glucerna protein supplements)
--- NOTE | 2018-09-25 09:38 | Physician Discharge Referral ---
<Mehnaz Saucedo - Last Filed: 09/25/18 09:57> ExtendedCare Referral Info Transfer To: [facility] Provider in Charge: Dr. Fredi Borja Provider in Charge after Transfer: Other (Rehab occupational therapy assist) Institutional Level of Care: Skilled - Diagnosis (1) Laceration Priority: Primary Status: Acute (2) Dizziness Priority: Secondary Status: Resolved (3) CALLY (acute kidney injury) Priority: Secondary Status: Acute (4) Diabetes Priority: Secondary Status: Chronic (5) HTN (hypertension) Priority: Secondary Status: Chronic (6) Candidiasis Priority: Secondary Status: Resolved (7) Morbid (severe) obesity due to excess calories Priority: Secondary Status: Chronic (8) UTI (urinary tract infection) Priority: Secondary Status: Suspected (9) Leukocytosis Priority: Secondary Status: Acute - Transfer Medications Home Medications: Glimepiride [Amaryl] 4 mg PO HS 09/14/18 [History] Insulin ASPART [NovoLOG] 5 unit SQ TIDWM 09/14/18 [History] Insulin Glargine [Lantus] 40 units SQ HS 09/14/18 [History] Rosuvastatin Calcium [Crestor] 10 mg PO DAILY 09/14/18 [History] cloNIDine HCl [CloNIDine HCl] 0.1 mg PO BID 09/14/18 [History] Cholecalciferol (D-3) [Vitamin D] 5,000 unit PO DAILY 09/15/18 [History] Amoxicillin [Amoxil] 500 mg PO TID capsule 09/25/18 [Rx] Bisacodyl [Dulcolax] 10 mg RC HS PRN supp.rect 09/25/18 [Rx] Clindamycin [Cleocin] 300 mg PO Q8HR capsule 09/25/18 [Rx] Docusate [Colace] 100 mg PO BID capsule 09/25/18 [Rx] Fluconazole [Diflucan] 200 mg PO DAILY udc 09/25/18 [Rx] Gabapentin [Neurontin] 300 mg PO HS capsule 09/25/18 [Rx] Insulin LISPRO [HumaLOG] 0 units SQ HS vial 09/25/18 [Rx] Insulin LISPRO [HumaLOG] 0 units SQ TIDAC vial 09/25/18 [Rx] Insulin LISPRO [HumaLOG] 10 units SQ TIDWM vial 09/25/18 [Rx] Meclizine [Antivert] 25 mg PO TID PRN tablet 09/25/18 [Rx] Metoprolol [Lopressor] 5 mg IVP Q6HR PRN vial 09/25/18 [Rx] Nystatin POWDER [Nystop] 1 appl TP TID bottle 09/25/18 [Rx] Polyethylene Glycol 3350 [MiraLAX] 17 gm PO DAILY powd.pack 09/25/18 [Rx] Allergies/Adverse Reactions: Allergy/AdvReac Type Severity Reaction Status Date / Time morphine Allergy Hives Verified 09/15/18 21:01 propoxyphene [From Darvon] Allergy Hives Verified 09/15/18 21:01 Sulfa (Sulfonamide Allergy Hives Verified 09/15/18 21:01 Antibiotics) latex AdvReac Rash Verified 09/19/18 08:33 - Respiratory Orders Smoking Cessation: Smoking cessation has been advised. For more information, call the [place] [employer] Quit Line at 0-939-BKRS-NOW. - Ancillary Orders May use pressure relief devices daily prn - Advance Directives Living Will: No Power of Qualifications Examiner for Health Care: No Code Status: Full Code - Mobility Orders Ambulate - Rehabiliation Orders Rehab Potential: Fair Rehab Orders: Evaluation for Physical Therapy, Evaluation for Occupational Therapy Other: Stunt Man consult for diabetes diet, management, and weightloss - Treatments List/Other: LLE WOUND DAILY WOUND CARE: Remove dressings. Wash (recommend shower) with antibacterial soap. Cover with adaptic then ABDs. Wrap with Kerlix and then lona bandage (beginning toes) Take your medications as directed. Do not stop your antibiotics without speaking with your providers first. You are recommended to better control your diabetes and weight as not doing so will delay healing as well as increasing your risk of heart attack, stroke, loss of limbs, blindness, etc. A bobbin sorter can help you follow a better diet while in rehab and at home. Continue to use your incentive spirometer while at rehab and at home. Pain control and Antibiotics to be determined per the rehab MD. - Diet Orders House Supplement per Dietary: 1800 Calorie diabetic diet with SF glucerna protein supplements (or equivalent) CERTIFICATION: I certify that the transfer of the above named patient to an Extended Care Facility is necessary for the continuing treatment of the diagnosis listed. The above information is true and accurate reflection of patient's current condition. Confidential - Redisclosure prohibited without a patient's written consent. <Lázaro Madison Lucy - Last Filed: 09/25/18 10:11> - Diagnosis (1) Laceration Status: Acute (2) Diabetes Status: Chronic (3) HTN (hypertension) Status: Chronic - Respiratory Orders Smoking Cessation: Smoking cessation has been advised. For more information, call the [place] Tobacco Quit Line at 1-100-TMVX-NOW. CERTIFICATION: I certify that the transfer of the above named patient to an Extended Care Facility is necessary for the continuing treatment of the diagnosis listed. The above information is true and accurate reflection of patient's current condition. Confidential - Redisclosure prohibited without a patient's written consent.
[2018-09-25] MEDS: cloNIDine HCl 0.1 MG TABLET PO SCH (10:30)
[2018-09-25] MEDS: Amoxicillin 500 MG CAPSULE PO SCH (10:31)
[2018-09-25] MEDS: Pantoprazole 40 MG VIAL IVP SCH (10:32)
[2018-09-25] MEDS: Nystatin POWDER 30 GM BOTTLE TP SCH (10:32)
--- NOTE | 2018-09-25 10:33 | Electrocardiograph Report ---
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
[2018-09-25 10:47] VITALS: BP 146/80
== END 2018-09-25 14:34 | disposition other institution (70) | DRG 577 ==
LOC: 3ANU 11:51 → EMEROOARM 11:51 → 3ANU 13:00
PROVIDERS: ADMIT Surgery; ATTEND Surgery

== ENCOUNTER 2021-04-15 14:12 | Inpatient (IN) ==
[2021-04-15] MEDS ORDERED: Acetaminophen 325 MG TABLET PO PRN (19:39)
[2021-04-15] MEDS ORDERED: Naloxone 0.4 MG/ML INJ IVP PRN (19:39)
[2021-04-15] MEDS ORDERED: Ondansetron 4 MG/2 ML VIAL IVP PRN (19:39)
[2021-04-15] MEDS ORDERED: D5% in Water 1,000 ML IVC PRN (20:14)
[2021-04-15] MEDS ORDERED: *HR* Dextrose 50 % in Water (Syg) 50 ML SYRINGE IVP PRN (20:14)
[2021-04-15] MEDS ORDERED: Dextrose Gel 15 GM/37.5 ML TUBE PO PRN ×2 (20:14)
[2021-04-15] MEDS ORDERED: Ipratropium 1 PUFF INHALER IH PRN (20:26)
[2021-04-15] MEDS ORDERED: Vancomycin 2,000 MG/520 ML IV.SOLN IVPB ONE (21:04)
[2021-04-15] MEDS: Azithromycin 500 MG in 0.9 % Sodium Chloride 250 ML IVPB SCH (21:48)
[2021-04-15 22:51] LABS: Thyroid Stimulating Hormone 0.43 mcIU/mL (0.340-5.600)
[2021-04-16] MEDS: Insulin LISPRO 300 UNITS/3 ML VIAL SUBQ SCH ×5 (00:18→20:04)
[2021-04-16] MEDS: Piperacillin/Tazobactam 3.375 GM in 0.9 % Sodium Chloride Mini Bag 100 ML IVPB SCH ×4 (00:20→23:51)
[2021-04-16] MEDS ORDERED: Metoprolol XL (24 HR) Succ 25 MG TAB.ER.24H PO SCH (09:00)
[2021-04-16] MEDS ORDERED: Gabapentin 400 MG CAPSULE PO ONE (10:15)
[2021-04-16] MEDS ORDERED: *HR* Metoprolol 5 MG/5 ML VIAL IVP PRN (11:52)
[2021-04-16] MEDS ORDERED: Haloperidol Lactate 5 MG/ML VIAL IVP PRN (11:54)
[2021-04-16] MEDS ORDERED: Metoprolol XL (24 HR) Succ 50 MG TAB.ER.24H PO ONE (12:00)
[2021-04-16 14:53] LABS: Nucleated Red Blood Cells 0.1 /100 WBC (0)
[2021-04-16 14:54] LABS: Hemoglobin 12.6 g/dL (11.5-15.4); Mean Corpuscular HGB Conc 31.5 g/dL (31.6-35.5); Mean Corpuscular Hemoglobin 28.2 pg (28.0-33.3); Mean Corpuscular Volume 89.5 fL (83.0-100.0); Platelet Count 444 K/mcL (140-400); Red Blood Count 4.47 M/mcL (3.82-4.97); Red Cell Distribution Width 14.1 % (11.5-14.5); White Blood Count 26.4 K/mcL (4.3-11.1)
[2021-04-16 14:58] LABS: Calcium 9.1 mg/dL (8.6-10.3); Potassium 4.6 mEq/L (3.5-5.1)
[2021-04-16 15:01] LABS: BUN/Creatinine Ratio 29 (6-26); Blood Urea Nitrogen 51 mg/dL (8-23); C-Reactive Protein 238 mg/L (Less than 10); Calcium 8.9 mg/dL (8.6-10.3); Carbon Dioxide 17 mEq/L (23-29); Chloride 99 mEq/L (98-107); Glucose 372 mg/dL (70-105); Lactate Dehydrogenase 373 Units/L (140-271); Osmolality,Calculated 307 (280-300); Potassium 4.7 mEq/L (3.5-5.1); Sodium 134 mEq/L (136-145); eGFR For African Americans 35 (> 60); eGFR For Non-African Americans 29 (> 60)
[2021-04-16 15:22] LABS: Ferritin > 1500 ng/mL (10-120); Monocytes # 0.5 K/mcL (0.0-1.3); Neutrophils # 24.8 K/mcL (1.6-8.9)
[2021-04-16 15:23] LABS: Platelet Estimate Increased (Normal)
[2021-04-16] MEDS: cloNIDine HCL 0.1 MG TABLET PO SCH ×2 (15:28→20:01)
[2021-04-16] MEDS: Gabapentin 300 MG CAPSULE PO SCH (20:01)
[2021-04-16] MEDS: Azithromycin 500 MG in 0.9 % Sodium Chloride 250 ML IVPB SCH (20:01)
[2021-04-16] MEDS ORDERED: Insulin DETEMIR 100 UNIT/ML X5UNITS SUBQ SCH (21:00)
[2021-04-16] MEDS ORDERED: Vancomycin 1,500 MG/265 ML IV.SOLN IVPB SCH (22:00)
[2021-04-16] MEDS ORDERED: Vancomycin 1,750 MG/517.5 ML IV.SOLN IVPB SCH (22:00)
[2021-04-17 00:33] LABS: White Blood Count 21.8 K/mcL (4.3-11.1)
[2021-04-17 00:34] LABS: Basophils # 0.1 K/mcL (0.0-0.2); Basophils % 0.4 %; Hematocrit 34.4 % (35.3-44.9); Hemoglobin 10.7 g/dL (11.5-15.4); Immature Granulocytes % 3.6 % (0-4); Lymphocytes # 1.3 K/mcL (0.6-4.6); Mean Corpuscular HGB Conc 31.1 g/dL (31.6-35.5); Mean Corpuscular Hemoglobin 28.2 pg (28.0-33.3); Mean Corpuscular Volume 90.8 fL (83.0-100.0); Monocytes # 0.6 K/mcL (0.0-1.3); Monocytes % 2.7 %; Neutrophils # 19.1 K/mcL (1.6-8.9); Nucleated Red Blood Cells 0.1 /100 WBC (0); Platelet Count 364 K/mcL (140-400); Red Blood Count 3.79 M/mcL (3.82-4.97); Red Cell Distribution Width 14.2 % (11.5-14.5); Segmented Neutrophils % 87.3 %
[2021-04-17 00:53] LABS: Calcium 8.2 mg/dL (8.6-10.3); Potassium 4.3 mEq/L (3.5-5.1)
[2021-04-17] MEDS: Insulin LISPRO 300 UNITS/3 ML VIAL SUBQ SCH ×4 (05:21→22:14)
[2021-04-17] MEDS: Piperacillin/Tazobactam 3.375 GM in 0.9 % Sodium Chloride Mini Bag 100 ML IVPB SCH ×2 (08:50→16:41)
[2021-04-17] MEDS: cloNIDine HCL 0.1 MG TABLET PO SCH ×2 (08:51→20:14)
[2021-04-17] MEDS: Metoprolol XL (24 HR) Succ 50 MG TAB.ER.24H PO SCH (08:51)
[2021-04-17] MEDS ORDERED: Insulin Human Regular 12 UNIT in 0.9 % Sodium Chloride 10 ML IV ONE (18:10)
[2021-04-17] MEDS ORDERED: 0.9 % Sodium Chloride 1,000 ML IVC SCH (18:15)
[2021-04-17] MEDS: Insulin DETEMIR 100 UNIT/ML X5UNITS SUBQ SCH (18:32)
[2021-04-17] MEDS: Gabapentin 300 MG CAPSULE PO SCH (20:11)
[2021-04-17] MEDS: Azithromycin 500 MG in 0.9 % Sodium Chloride 250 ML IVPB SCH (20:14)
[2021-04-18] MEDS: Piperacillin/Tazobactam 3.375 GM in 0.9 % Sodium Chloride Mini Bag 100 ML IVPB SCH ×4 (01:05→23:33)
[2021-04-18 04:59] LABS: Hematocrit 33.4 % (35.3-44.9); Nucleated Red Blood Cells 0.1 /100 WBC (0)
[2021-04-18 05:00] LABS: Hemoglobin 10.7 g/dL (11.5-15.4); Mean Corpuscular Hemoglobin 28.5 pg (28.0-33.3); Mean Corpuscular Volume 89.1 fL (83.0-100.0); Mean Platelet Volume 10.1 fL (9.4-12.4); Platelet Count 430 K/mcL (140-400); Red Blood Count 3.75 M/mcL (3.82-4.97); White Blood Count 24.6 K/mcL (4.3-11.1)
[2021-04-18 05:19] LABS: Calcium 8.4 mg/dL (8.6-10.3); Potassium 4.3 mEq/L (3.5-5.1)
[2021-04-18 06:24] LABS: Lymphocytes # 1.5 K/mcL (0.6-4.6); Monocytes # 0.5 K/mcL (0.0-1.3); Neutrophils # 22.6 K/mcL (1.6-8.9)
[2021-04-18] MEDS: Levothyroxine 25 MCG TABLET PO SCH (06:28)
[2021-04-18] MEDS ORDERED: Insulin DETEMIR 100 UNIT/ML X5UNITS SUBQ ONE (08:04)
[2021-04-18] MEDS ORDERED: Ringers Solution, Lactated 1,000 ML IVC SCH (08:15)
[2021-04-18] MEDS ORDERED: Metoprolol XL (24 HR) Succ 25 MG TAB.ER.24H PO SCH (09:00)
[2021-04-18] MEDS ORDERED: Metoprolol XL (24 HR) Succ 50 MG TAB.ER.24H PO SCH (09:00)
[2021-04-18] MEDS: Metoprolol XL (24 HR) Succ 50 MG TAB.ER.24H PO SCH (09:04)
[2021-04-18] MEDS: Insulin LISPRO 300 UNITS/3 ML VIAL SUBQ SCH ×4 (09:04→20:53)
[2021-04-18] MEDS: cloNIDine HCL 0.1 MG TABLET PO SCH ×2 (09:04→20:55)
[2021-04-18] MEDS: Insulin DETEMIR 100 UNIT/ML X5UNITS SUBQ SCH (20:54)
[2021-04-18] MEDS: Gabapentin 300 MG CAPSULE PO SCH (20:54)
[2021-04-18] MEDS: Azithromycin 500 MG in 0.9 % Sodium Chloride 250 ML IVPB SCH (20:55)
[2021-04-19 06:29] LABS: Hematocrit 31.4 % (35.3-44.9); Hemoglobin 10.5 g/dL (11.5-15.4); Mean Corpuscular HGB Conc 33.4 g/dL (31.6-35.5); Mean Corpuscular Volume 86.7 fL (83.0-100.0); Mean Platelet Volume 9.9 fL (9.4-12.4); Platelet Count 444 K/mcL (140-400); Red Blood Count 3.62 M/mcL (3.82-4.97); Red Cell Distribution Width 13.6 % (11.5-14.5); White Blood Count 15.8 K/mcL (4.3-11.1)
[2021-04-19 06:59] LABS: Calcium 8.5 mg/dL (8.6-10.3); Potassium 4.2 mEq/L (3.5-5.1)
[2021-04-19 07:33] LABS: Lymphocytes # 1.3 K/mcL (0.6-4.6); Monocytes # 0.3 K/mcL (0.0-1.3); Neutrophils # 14.2 K/mcL (1.6-8.9)
[2021-04-19] MEDS: Piperacillin/Tazobactam 3.375 GM in 0.9 % Sodium Chloride Mini Bag 100 ML IVPB SCH ×2 (09:34→16:50)
[2021-04-19] MEDS: Insulin LISPRO 300 UNITS/3 ML VIAL SUBQ SCH ×4 (09:35→23:07)
[2021-04-19] MEDS: Levothyroxine 25 MCG TABLET PO SCH (09:36)
[2021-04-19] MEDS: cloNIDine HCL 0.1 MG TABLET PO SCH ×2 (09:36→22:21)
[2021-04-19] MEDS: Metoprolol XL (24 HR) Succ 50 MG TAB.ER.24H PO SCH (09:36)
[2021-04-19] MEDS: Azithromycin 500 MG in 0.9 % Sodium Chloride 250 ML IVPB SCH (22:18)
[2021-04-19] MEDS: Insulin DETEMIR 100 UNIT/ML X5UNITS SUBQ SCH (23:07)
[2021-04-20] MEDS: Piperacillin/Tazobactam 3.375 GM in 0.9 % Sodium Chloride Mini Bag 100 ML IVPB SCH ×2 (01:07→07:51)
[2021-04-20] MEDS: Levothyroxine 25 MCG TABLET PO SCH (05:48)
[2021-04-20] MEDS: cloNIDine HCL 0.1 MG TABLET PO SCH ×2 (07:52→20:53)
[2021-04-20] MEDS: Metoprolol XL (24 HR) Succ 50 MG TAB.ER.24H PO SCH (07:53)
[2021-04-20] MEDS: Insulin LISPRO 300 UNITS/3 ML VIAL SUBQ SCH ×5 (08:51→20:57)
[2021-04-20] MEDS ORDERED: levoFLOXacin 750 MG TABLET PO SCH (09:00)
[2021-04-20 16:33] LABS: Basophils % 0.1 %; Hematocrit 36.1 % (35.3-44.9); Immature Granulocytes % 8.2 % (0-4); Lymphocytes # 1.1 K/mcL (0.6-4.6); Lymphocytes % 5.7 %; Mean Corpuscular HGB Conc 34.1 g/dL (31.6-35.5); Mean Corpuscular Hemoglobin 28.6 pg (28.0-33.3); Mean Platelet Volume 9.9 fL (9.4-12.4); Monocytes # 0.6 K/mcL (0.0-1.3); Monocytes % 2.8 %; Platelet Count 541 K/mcL (140-400); Red Cell Distribution Width 13.5 % (11.5-14.5); Segmented Neutrophils % 83.2 %; White Blood Count 19.5 K/mcL (4.3-11.1)
[2021-04-20 16:36] LABS: Hemoglobin 12.3 g/dL (11.5-15.4); Neutrophils # 16.2 K/mcL (1.6-8.9)
[2021-04-20 16:47] LABS: Calcium 8.8 mg/dL (8.6-10.3); Potassium 4.6 mEq/L (3.5-5.1)
[2021-04-20] MEDS: *HR* Heparin 5,000 UNIT/ML VIAL SQ SCH (17:01)
[2021-04-20 17:28] LABS: Platelet Estimate Increased (Normal); Toxic Granulation Present (Not Present)
[2021-04-20] MEDS ORDERED: *HR* Heparin 5,000 UNIT/ML VIAL SQ SCH (18:00)
[2021-04-20] MEDS: Gabapentin 300 MG CAPSULE PO SCH (20:53)
[2021-04-20] MEDS: Insulin DETEMIR 100 UNIT/ML X5UNITS SUBQ SCH (20:57)
[2021-04-21] MEDS: *HR* Heparin 5,000 UNIT/ML VIAL SQ SCH ×3 (00:04→17:00)
[2021-04-21 02:49] LABS: Basophils % 0.1 %; Hemoglobin 11.7 g/dL (11.5-15.4); Immature Granulocytes % 9.1 % (0-4); Lymphocytes # 1.4 K/mcL (0.6-4.6); Lymphocytes % 7.7 %; Mean Corpuscular HGB Conc 33.4 g/dL (31.6-35.5); Mean Corpuscular Hemoglobin 28.8 pg (28.0-33.3); Mean Corpuscular Volume 86.2 fL (83.0-100.0); Mean Platelet Volume 9.7 fL (9.4-12.4); Monocytes # 1.1 K/mcL (0.0-1.3); Monocytes % 5.8 %; Neutrophils # 14.4 K/mcL (1.6-8.9); Platelet Count 543 K/mcL (140-400); Red Blood Count 4.06 M/mcL (3.82-4.97); Red Cell Distribution Width 13.5 % (11.5-14.5); Segmented Neutrophils % 77.3 %; White Blood Count 18.6 K/mcL (4.3-11.1)
[2021-04-21 02:57] LABS: Platelet Estimate Increased (Normal)
[2021-04-21 03:01] LABS: D-Dimer 1484 ng/mLFEU (0-500); Fibrinogen 474 mg/dL (169-393)
[2021-04-21 03:13] LABS: Calcium 8.6 mg/dL (8.6-10.3); Potassium 4.3 mEq/L (3.5-5.1)
[2021-04-21 03:15] LABS: Magnesium 1.7 mg/dL (1.6-2.6)
[2021-04-21] MEDS: Levothyroxine 25 MCG TABLET PO SCH (05:32)
[2021-04-21] MEDS: cloNIDine HCL 0.1 MG TABLET PO SCH ×2 (08:50→21:36)
[2021-04-21] MEDS: Metoprolol XL (24 HR) Succ 50 MG TAB.ER.24H PO SCH (08:51)
[2021-04-21] MEDS: Insulin LISPRO 300 UNITS/3 ML VIAL SUBQ SCH ×8 (08:53→22:48)
[2021-04-21] MEDS: Insulin DETEMIR 100 UNIT/ML X5UNITS SUBQ SCH ×2 (08:54→21:33)
[2021-04-21] MEDS ORDERED: amLODIPine 5 MG TABLET PO SCH (15:30)
[2021-04-21] MEDS: levoFLOXacin 750 MG TABLET PO SCH (17:00)
[2021-04-21] MEDS: Gabapentin 300 MG CAPSULE PO SCH (21:32)
[2021-04-21] MEDS: Melatonin 3 MG TABLET PO PRN (21:54)
[2021-04-22] MEDS: *HR* Heparin 5,000 UNIT/ML VIAL SQ SCH ×4 (00:46→23:56)
[2021-04-22 02:15] LABS: Hematocrit 35.7 % (35.3-44.9); Hemoglobin 11.7 g/dL (11.5-15.4); Mean Corpuscular HGB Conc 32.8 g/dL (31.6-35.5); Mean Corpuscular Hemoglobin 28.2 pg (28.0-33.3); Mean Platelet Volume 9.5 fL (9.4-12.4); Platelet Count 548 K/mcL (140-400); Red Blood Count 4.15 M/mcL (3.82-4.97); Red Cell Distribution Width 13.4 % (11.5-14.5); White Blood Count 18.2 K/mcL (4.3-11.1)
[2021-04-22 02:31] LABS: Calcium 8.6 mg/dL (8.6-10.3); Potassium 4.1 mEq/L (3.5-5.1)
[2021-04-22 03:22] LABS: Large Platelets Present (Not Present); Lymphocytes # 1.5 K/mcL (0.6-4.6); Monocytes # 0.7 K/mcL (0.0-1.3); Neutrophils # 14.9 K/mcL (1.6-8.9); Platelet Estimate Marked Increase (Normal)
[2021-04-22] MEDS: Levothyroxine 25 MCG TABLET PO SCH (06:20)
[2021-04-22] MEDS: Insulin LISPRO 300 UNITS/3 ML VIAL SUBQ SCH ×7 (08:41→21:34)
[2021-04-22] MEDS: cloNIDine HCL 0.1 MG TABLET PO SCH ×2 (08:43→21:30)
[2021-04-22] MEDS: amLODIPine 5 MG TABLET PO SCH (08:43)
[2021-04-22] MEDS: Metoprolol XL (24 HR) Succ 50 MG TAB.ER.24H PO SCH (08:43)
[2021-04-22] MEDS: Insulin DETEMIR 100 UNIT/ML X5UNITS SUBQ SCH ×2 (08:56→21:34)
[2021-04-22] MEDS: levoFLOXacin 750 MG TABLET PO SCH (17:42)
[2021-04-22] MEDS: Sennosides/Docusate Sodium TABLET PO SCH (21:30)
[2021-04-22] MEDS: Gabapentin 300 MG CAPSULE PO SCH (21:31)
[2021-04-22] MEDS: Melatonin 3 MG TABLET PO PRN (21:31)
[2021-04-23] MEDS: Levothyroxine 25 MCG TABLET PO SCH (05:34)
[2021-04-23 06:01] LABS: Hemoglobin 12.2 g/dL (11.5-15.4); Mean Corpuscular Hemoglobin 28.6 pg (28.0-33.3); Mean Corpuscular Volume 86.9 fL (83.0-100.0); Mean Platelet Volume 9.5 fL (9.4-12.4); Platelet Count 586 K/mcL (140-400); Red Blood Count 4.26 M/mcL (3.82-4.97); Red Cell Distribution Width 13.6 % (11.5-14.5); White Blood Count 20.4 K/mcL (4.3-11.1)
[2021-04-23 08:04] LABS: Calcium 8.9 mg/dL (8.6-10.3); Magnesium 1.7 mg/dL (1.6-2.6); Phosphorous 3.1 mg/dL (2.7-4.5); Potassium 4.3 mEq/L (3.5-5.1)
[2021-04-23 08:53] LABS: Monocytes # 0.6 K/mcL (0.0-1.3); Neutrophils # 16.5 K/mcL (1.6-8.9)
[2021-04-23 08:54] LABS: Platelet Estimate Marked Increase (Normal)
[2021-04-23 08:55] LABS: Large Platelets Present (Not Present); Toxic Granulation Present (Not Present)
[2021-04-23] MEDS ORDERED: dexAMETHasone 4 MG TABLET PO SCH (09:00)
[2021-04-23] MEDS: Metoprolol XL (24 HR) Succ 50 MG TAB.ER.24H PO SCH (10:37)
[2021-04-23] MEDS: amLODIPine 5 MG TABLET PO SCH (10:37)
[2021-04-23] MEDS: cloNIDine HCL 0.1 MG TABLET PO SCH ×2 (10:37→21:15)
[2021-04-23] MEDS: Insulin DETEMIR 100 UNIT/ML X5UNITS SUBQ SCH (10:38)
[2021-04-23] MEDS: Sennosides/Docusate Sodium TABLET PO SCH ×2 (10:38→21:15)
[2021-04-23] MEDS: Insulin LISPRO 300 UNITS/3 ML VIAL SUBQ SCH ×7 (10:42→22:12)
[2021-04-23] MEDS: *HR* Heparin 5,000 UNIT/ML VIAL SQ SCH ×2 (12:30→18:06)
[2021-04-23] MEDS ORDERED: Insulin DETEMIR 100 UNIT/ML X5UNITS SUBQ SCH (21:00)
[2021-04-23] MEDS: Gabapentin 300 MG CAPSULE PO SCH (21:14)
[2021-04-24] MEDS: Levothyroxine 25 MCG TABLET PO SCH (05:32)
[2021-04-24] MEDS: *HR* Heparin 5,000 UNIT/ML VIAL SQ SCH ×3 (05:35→16:55)
[2021-04-24 06:08] LABS: Hematocrit 35.2 % (35.3-44.9); Hemoglobin 11.9 g/dL (11.5-15.4); Mean Corpuscular HGB Conc 33.8 g/dL (31.6-35.5); Mean Corpuscular Hemoglobin 29.2 pg (28.0-33.3); Mean Corpuscular Volume 86.3 fL (83.0-100.0); Mean Platelet Volume 9.7 fL (9.4-12.4); Platelet Count 567 K/mcL (140-400); Red Blood Count 4.08 M/mcL (3.82-4.97); Red Cell Distribution Width 13.7 % (11.5-14.5); White Blood Count 20.7 K/mcL (4.3-11.1)
[2021-04-24 06:46] LABS: BUN/Creatinine Ratio 39 (6-26); Blood Urea Nitrogen 42 mg/dL (8-23); Calcium 8.9 mg/dL (8.6-10.3); Carbon Dioxide 23 mEq/L (23-29); Chloride 103 mEq/L (98-107); Glucose 270 mg/dL (70-105); Magnesium 1.7 mg/dL (1.6-2.6); Osmolality,Calculated 296 (280-300); Phosphorous 3.3 mg/dL (2.7-4.5); Potassium 4.4 mEq/L (3.5-5.1); Sodium 133 mEq/L (136-145); eGFR For African Americans > 60 (> 60); eGFR For Non-African Americans 50 (> 60)
[2021-04-24 07:55] LABS: Lymphocytes # 2.3 K/mcL (0.6-4.6); Monocytes # 0.8 K/mcL (0.0-1.3); Neutrophils # 17.2 K/mcL (1.6-8.9); Reactive Lymphocytes Present (Not Present)
[2021-04-24 07:56] LABS: Toxic Granulation Present (Not Present)
[2021-04-24] MEDS: Insulin LISPRO 300 UNITS/3 ML VIAL SUBQ SCH ×7 (09:16→20:41)
[2021-04-24] MEDS: cloNIDine HCL 0.1 MG TABLET PO SCH ×2 (09:17→20:40)
[2021-04-24] MEDS: Insulin DETEMIR 100 UNIT/ML X5UNITS SUBQ SCH ×2 (09:17→20:40)
[2021-04-24] MEDS: amLODIPine 5 MG TABLET PO SCH (09:17)
[2021-04-24] MEDS: Sennosides/Docusate Sodium TABLET PO SCH ×2 (09:18→20:40)
[2021-04-24] MEDS: Metoprolol XL (24 HR) Succ 50 MG TAB.ER.24H PO SCH (09:18)
[2021-04-24 10:11] LABS: Hematocrit 37.5 % (35.3-44.9); Hemoglobin 12.3 g/dL (11.5-15.4); Mean Corpuscular HGB Conc 32.8 g/dL (31.6-35.5); Mean Corpuscular Hemoglobin 28.7 pg (28.0-33.3); Mean Corpuscular Volume 87.4 fL (83.0-100.0); Platelet Count 565 K/mcL (140-400); Red Blood Count 4.29 M/mcL (3.82-4.97); Red Cell Distribution Width 13.9 % (11.5-14.5); White Blood Count 23.4 K/mcL (4.3-11.1)
[2021-04-24] MEDS: Magic Mouthwash 10 ML UD Cup PO SCH ×2 (12:36→16:56)
[2021-04-24] MEDS: Gabapentin 300 MG CAPSULE PO SCH (20:40)
[2021-04-24] MEDS ORDERED: Bisacodyl 10 MG RECTAL SUPPOSITORY RC PRN (21:00)
[2021-04-25] MEDS: *HR* Heparin 5,000 UNIT/ML VIAL SQ SCH ×3 (01:20→16:41)
[2021-04-25] MEDS: Levothyroxine 25 MCG TABLET PO SCH (05:23)
[2021-04-25 07:20] LABS: Basophils % 0.2 %; Eosinophils # 0.3 K/mcL (0.0-0.6); Eosinophils % 1.2 %; Hematocrit 40.3 % (35.3-44.9); Hemoglobin 12.7 g/dL (11.5-15.4); Immature Granulocytes % 9.5 % (0-4); Lymphocytes # 2.9 K/mcL (0.6-4.6); Lymphocytes % 12.5 %; Mean Corpuscular HGB Conc 31.5 g/dL (31.6-35.5); Mean Corpuscular Hemoglobin 28.1 pg (28.0-33.3); Mean Corpuscular Volume 89.2 fL (83.0-100.0); Mean Platelet Volume 9.9 fL (9.4-12.4); Monocytes # 1.9 K/mcL (0.0-1.3); Monocytes % 8.3 %; Neutrophils # 15.8 K/mcL (1.6-8.9); Platelet Count 520 K/mcL (140-400); Red Blood Count 4.52 M/mcL (3.82-4.97); Red Cell Distribution Width 14.1 % (11.5-14.5); Segmented Neutrophils % 68.3 %; White Blood Count 23.1 K/mcL (4.3-11.1)
[2021-04-25 07:24] LABS: Basophils # 0.1 K/mcL (0.0-0.2)
[2021-04-25 07:55] LABS: Platelet Estimate Increased (Normal)
[2021-04-25] MEDS: amLODIPine 5 MG TABLET PO SCH (09:35)
[2021-04-25] MEDS: Magic Mouthwash 10 ML UD Cup PO SCH ×3 (09:35→16:41)
[2021-04-25] MEDS: Insulin LISPRO 300 UNITS/3 ML VIAL SUBQ SCH ×6 (09:37→16:42)
[2021-04-25] MEDS: cloNIDine HCL 0.1 MG TABLET PO SCH (09:37)
[2021-04-25] MEDS: Insulin DETEMIR 100 UNIT/ML X5UNITS SUBQ SCH (09:37)
[2021-04-25] MEDS: Sennosides/Docusate Sodium TABLET PO SCH (09:37)
[2021-04-25] MEDS: Metoprolol XL (24 HR) Succ 50 MG TAB.ER.24H PO SCH (09:37)
[2021-04-25 18:56] VITALS: BP 121/72; PULSE 107; TEMP 99.1; O2SAT 100
== END 2021-04-25 18:45 | DRG 871 ==
LOC: 2NENU → SUATTDRO 22:33
PROVIDERS: ADMIT General Practice; ATTEND Internal Medicine